=== PATIENT | male | born 1955 | race Caucasian/White ===

== ENCOUNTER 2016-11-10 12:50 | Emergency (ER) | payer BC, SELFPAY ==
[~2016-11-10] VITALS: Ht 175.3 cm; Wt 49.9 kg
[~2016-11-10 12:50] MED LIST: ADV500INH INH; ALBU17IN2 INH; FERR325T PO; FOLI1TAB2 PO; LEVA750T PO; NICO7PA TD; SENN1TAB2 PO; THIA100TA PO; THIA50CA PO; VITMTA PO
[2016-11-10 15:06] LABS: BASO # 0.1 K/mm3 (0.0-0.2); BASO % 0.8 % (0.0-1.0); EOS # 0.1 K/mm3 (0.0-0.50); EOS % 1.4 % (0.0-3.0); LARGE UNSTAINED CELL # 0.1 K/mm3 (0.0-0.4); LARGE UNSTAINED CELL % 1.4 % (0.0-4.0); LYMPH # 1.4 K/mm3 (1.5-4.5); LYMPH % 16.5 % (24.0-44.0); MEAN CORPUSCULAR HEMOGLOBIN 27.1 pg (27.0-33.0); MEAN CORPUSCULAR HGB CONC 32.3 g/dl (32.0-36.5); MEAN CORPUSCULAR VOLUME 83.9 fl (80.0-96.0); MONO # 0.5 K/mm3 (0.0-0.8); MONO % 6.2 % (0.0-5.0); NEUTROPHILS # 5.8 K/mm3 (1.8-7.7); NEUTROPHILS % 73.7 % (36.0-66.0); PLATELET COUNT, AUTOMATED 462 k/mm3 (150-450); RED CELL DISTRIBUTION WIDTH 15.6 % (11.5-14.5); WHITE BLOOD COUNT 7.8 K/mm3 (4.0-10.0)
[2016-11-10 15:07] LABS: ANION GAP 6 MEQ/L (8-16); BLOOD UREA NITROGEN 12 MG/DL (7-18); CALCIUM LEVEL 9.2 MG/DL (8.8-10.2); CARBON DIOXIDE LEVEL 31 MEQ/L (21-32); CHLORIDE LEVEL 96 MEQ/L (98-107); CREATININE FOR GFR 0.69 MG/DL (0.70-1.30); GLOMERULAR FILTRATION RATE > 60.0 (>49); GLUCOSE, FASTING 98 MG/DL (80-110); SODIUM LEVEL 133 MEQ/L (136-145)
[2016-11-10 15:11] LABS: POTASSIUM SERUM 5.3 MEQ/L (3.5-5.1)
[2016-11-10] MEDS ORDERED: ISOVUE-370 76% 100ML VIAL (Q9967) As Ordered ONE (15:30)
[2016-11-10] MEDS ORDERED: SOD POLYSTYRENE SULFONATE SUSP 15 GM/60 ML UD PO ONE (16:45)
--- NOTE | 2016-11-10 16:49 | REP ---
CT NECK WITH CONTRAST: HISTORY: Right neck mass. CONTRAST: Isovue-370 75 mL. A large mass is present arising from the right posterolateral wall of the hypopharynx. There is superior extension into the right valleculae and piriform sinus. There is anterior extension into the preepiglottic space left lateral wall of the hypopharynx. There is extension along the posterior wall of the hypopharynx across the midline. There is inferior extension into the right false and true vocal cord and subglottic trachea. There is inferior extension along the left lateral wall at the hypopharynx into the left false vocal cord , left true vocal cord and subglottic trachea. There is moderate mass effect on the airway. The naso- and oropharynx are normal in appearance. The salivary and thyroid glands are normal. A necrotic lymph node mass 2.6 cm in width is present in the posterior right submandibular space. A necrotic lymph node mass 2 cm in width is present in the right supraclavicular area at the level of the thyroid gland. Atherosclerotic calcification is present at the carotid bifurcations. Degenerative change is present in the cervical spine. [place] are present in the lung apices. Minimal mucosal thickening is present in the left maxillary sinus. IMPRESSION: 1. There is a large transglottic mass extending from the hypopharynx inferior into the subglottic trachea with moderate mass effect on the airway described above. 2. There are two necrotic lymph node masses in the right submandibular space and right supraclavicular area. Signed by Omkar Ryan MD 11/10/2016 04:57 P
[2016-11-10 17:40] VITALS: BP 147/80
--- NOTE | 2016-11-11 10:22 | ECGEPIP ---
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 RBBB SIMILAR TO 07/07/16 Electronically Signed On 11-11-2016 10:22:37 EDT by Dex Roberto
== END 2016-11-10 17:42 | disposition home or self-care (01) ==
LOC: M ED 15:43
DX: R22.1 Localized swelling, mass and lump, neck (principal); E87.5 Hyperkalemia
CPT/HCPCS: 36415; 70491; 80048; 85025; 87880; 93005; 99283; Q9967

== ENCOUNTER 2018-05-17 12:17 | Outpatient (RCR) | payer OTHER | END 2018-06-16 | LOC: M ST 12:17 | DX: C32.9 Malignant neoplasm of larynx, unspecified (principal); R49.0 Dysphonia | CPT/HCPCS: 92610 ==

== ENCOUNTER → 2018-07-07 | Outpatient (CLI) | payer OTHER ==
[~2018-07-07] MED LIST changes: -ADV500INH INH; -ALBU17IN2 INH; -FERR325T PO; -FOLI1TAB2 PO; +GASTROGRAFIN SOLUTION 30ML (Q9963) As Ordered; +ISOVUE-370 76% 100ML VIAL (Q9967) As Ordered; -LEVA750T PO; -NICO7PA TD; -SENN1TAB2 PO; -THIA100TA PO; -THIA50CA PO; -VITMTA PO
== END ==
LOC: M RAD 15:53
DX: J44.9 Chronic obstructive pulmonary disease, unspecified (principal); D49.1 Neoplasm of unspecified behavior of respiratory system; Z93.0 Tracheostomy status; Z98.890 Other specified postprocedural states
CPT/HCPCS: Q9963

== ENCOUNTER 2018-10-22 20:29 | Emergency (ER) | payer OTHER ==
[~2018-10-22] VITALS: Ht 172.7 cm; Wt 42.3 kg
[~2018-10-22 20:29] MED LIST changes: +ADV500INH INH; +ALBU17IN2 INH; +FERR1TAB8 PO; +FOLI1TAB11 PO; -GASTROGRAFIN SOLUTION 30ML (Q9963) As Ordered; -ISOVUE-370 76% 100ML VIAL (Q9967) As Ordered; +LEVA750T7 PO; +NICO7PA TD; +SENN1TAB2 PO; +THIA100TA PO; +THIA50CA PO; +VITMTA PO
[2018-10-22 20:30] VITALS: BP 99/66
== END 2018-10-22 21:37 | disposition home or self-care (01) ==
LOC: M ED 20:29
DX: J95.09 Other tracheostomy complication (principal); C34.90 Malignant neoplasm of unspecified part of unspecified bronchus or lung; J45.909 Unspecified asthma, uncomplicated; Z72.0 Tobacco use

== ENCOUNTER → 2018-12-13 | Outpatient (CLI) | payer OTHER ==
[~2018-12-13] MED LIST changes: -SENN1TAB2 PO; +SENN1TAB40 PO
[2018-12-13 15:50] LABS: BASO % 0.6 % (0.0-1.0); EOS % 0.3 % (0.0-3.0); HEMATOCRIT 25.8 % (42.0-52.0); HEMOGLOBIN 8.3 g/dl (13.5-17.5); LYMPH # 0.5 10^3/uL (1.5-4.5); LYMPH % 13.3 % (24.0-44.0); MEAN CORPUSCULAR HEMOGLOBIN 29.9 pg (27.0-33.0); MEAN CORPUSCULAR HGB CONC 32.2 g/dl (32.0-36.5); MEAN CORPUSCULAR VOLUME 92.8 fl (80.0-96.0); MONO # 0.3 10^3/uL (0.0-0.8); MONO % 8.2 % (0.0-5.0); NEUTROPHILS # 2.7 10^3/uL (1.8-7.7); NEUTROPHILS % 76.5 % (36.0-66.0); PLATELET COUNT, AUTOMATED 327 10^3/uL (150-450); RED BLOOD COUNT 2.78 10^6/uL (4.30-6.10); WHITE BLOOD COUNT 3.5 10^3/uL (4.0-10.0)
== END ==
LOC: M LAB 15:17
PROVIDERS: ATTEND Internal Medicine Hematology & Oncology
DX: D64.9 Anemia, unspecified (principal)

== ENCOUNTER 2019-01-03 11:58 | Inpatient (IN) | payer OTHER ==
[~2019-01-03 11:58] MED LIST changes: +POTA1TAB23 PO
[2019-01-03] MEDS ORDERED: NS 1,000 ML IV ONE (13:00)
--- NOTE | 2019-01-03 14:38 | REP ---
REASON: Fatigue. COMPARISON: 07/07/2016, the only prior. Since the last examination a tracheostomy tube has been placed. Since the last examination a single chamber right sided subclavian multi-port catheter has been placed, the tip is in the superior vena cava. The patchy opacities seen previously in the left upper lobe have cleared and there is residual apical capping and scarring. There is a new right upper lobe patchy opacity which has the appearance of some scarring and apical capping. The lung morales are hyperexpanded. The pleural angles are sharp. The technique utilized in obtaining the radiograph has magnified the cardiac silhouette and accentuated the interstitial markings. The osseous structures are stable and intact. IMPRESSION: Abnormal right upper lung field as described above, chronic change with possible acute disease superimposed upon chronic change. Correlate clinically. Tracheostomy tube and central venous catheter as described above. Consider chest CT. Electronically Signed by Andrez Ramesh DO 01/03/2019 03:40 P
[2019-01-03 15:20] LABS: BASO % 0.3 % (0.0-1.0); EOS % 0.3 % (0.0-3.0); HEMATOCRIT 24.8 % (42.0-52.0); HEMOGLOBIN 7.8 g/dl (13.5-17.5); LYMPH # 0.3 10^3/uL (1.5-4.5); LYMPH % 9.8 % (24.0-44.0); MEAN CORPUSCULAR HEMOGLOBIN 29.5 pg (27.0-33.0); MEAN CORPUSCULAR HGB CONC 31.5 g/dl (32.0-36.5); MEAN CORPUSCULAR VOLUME 93.9 fl (80.0-96.0); MONO # 0.3 10^3/uL (0.0-0.8); MONO % 10.7 % (0.0-5.0); NEUTROPHILS # 2.5 10^3/uL (1.8-7.7); NEUTROPHILS % 78.6 % (36.0-66.0); PLATELET COUNT, AUTOMATED 196 10^3/uL (150-450); RED BLOOD COUNT 2.64 10^6/uL (4.30-6.10); WHITE BLOOD COUNT 3.2 10^3/uL (4.0-10.0)
[2019-01-03 15:48] LABS: ALBUMIN 1.4 GM/DL (3.2-5.2); ALT/SGPT 13 U/L (12-78); BILIRUBIN,TOTAL 0.2 MG/DL (0.2-1.0); BLOOD UREA NITROGEN 11 MG/DL (7-18); CARBON DIOXIDE LEVEL 27 MEQ/L (21-32); CHLORIDE LEVEL 110 MEQ/L (98-107); CREATININE FOR GFR 0.72 MG/DL (0.70-1.30); FERRITIN 285 NG/ML (26-388); GLOMERULAR FILTRATION RATE > 60.0 (>49); GLUCOSE, FASTING 86 MG/DL (70-100); IRON (FE) 33 UG/DL (65-175); MAGNESIUM LEVEL 1.4 MG/DL (1.8-2.4); PERCENT SATURATION 36.7 % (19.7-50.0); POTASSIUM SERUM 3.9 MEQ/L (3.5-5.1); SODIUM LEVEL 143 MEQ/L (136-145); TOTAL IRON BINDING CAPACITY 90 UG/DL (250-450); TOTAL PROTEIN 4.1 GM/DL (6.4-8.2)
[2019-01-03 15:59] LABS: FOLATE 6.5 NG/ML (>5.4); VITAMIN B12 LEVEL 907 PG/ML (247-911)
[2019-01-03] MEDS ORDERED: MAG SULF 1GM/100ML (MAG RUN) 1 GM in APPROPRIATE DILUENT 1 EA IV ONE (16:15)
[2019-01-03] MEDS ORDERED: ACET-683 PO (16:35)
--- NOTE | 2019-01-03 17:32 | HPEPDOC ---
[facility] Medical History & Physical Date of Admission January 03, 2019 Date of Service: January 03, 2019 Attending Physician: ISABEL MEEKS MD History and Physical CHIEF COMPLAINT: Severe weakness HISTORY OF PRESENT ILLNESS: Patient is 63-year-old male with past medical history of laryngeal cancer status post tracheostomy and ?COPD presented sent in to the ER from Oncology clinic for hypotension and severe malnutrition. Patient has had chemo/RT and normally follows at [place] but recently decided to go to [place] and start following Oncology here. He went in for his first appointment today noted to be severely cachectic with hypotension and was sent to the ER. Patient reports generalized weakness and lack of appetite but otherwise no significant complaints. He was found to be covered in bed bugs and disheveled. PAST MEDICAL HISTORY: 1. Laryngeal ca s/p Trach FAST FOOD SHIFT LEAD 2. ?COPD documented but not on any treatments PAST SURGICAL HISTORY: L. wrist surgery Trach s/p PEG but had fallen out. SOCIAL HISTORY: Current smoker <1ppd but recent history of 1ppd since age 21. Denies alcohol or drug use. FAMILY HISTORY: Mother DM HTN Father- Emphysema/COPD, CHF, HTN, HLD, Cancer ALLERGIES: Please see below. REVIEW OF SYSTEMS: 10 point review of system negative except as stated in HPI HOME MEDICATIONS: Please see below. PHYSICAL EXAMINATION: General: No acute distress, Alert. Disheveled, severely cachectic with significant hair loss. Eyes: Normal sclera, EOMI, JAMI HENT: Atraumatic, neck supple, moist mucous membranes Cardiovascular: Normal rate, normal rhythm. No murmurs appreciated. Pulmonary: Clear to auscultation b/l, no wheezing GI: Soft, nontender, nondistended Skin: Warm and dry Neuro: CN grossly intact. No focal deficits. Strengths equal b/l. Psych: oriented x 3 LABORATORY DATA: See below. IMAGING: CXR- IMPRESSION: Abnormal right upper lung field as described above, chronic change with possible acute disease superimposed upon chronic change. Correlate clinically. Tracheostomy tube and central venous catheter as described above. Consider chest CT. MICROBIOLOGY: Please see below. ASSESSMENT AND PLAN: 1. Severe malnutrition/cachectic - 2/2 malignancy and low appetite. - Full nutrition assessment and management. - Cautious to avoid refeeding syndrome, although patient does eat at home, just not as much. - Monitor and replace electrolytes. 2. Laryngeal cancer - s/p FAST FOOD SHIFT LEAD. To follow up with Oncology post discharge. - Patient is DNR, want assistance with nutrition optimization but does not want any aggressive intervention in the hospital at this time. - No central line placement for hypotension. 3. ? COPD - Nebs PRN for SOB. 4. Anemia - likely 2/2 severe malnutrition and malignancy. - blood started in ER, to get 2 units pRBC. DVT ppx: HSQ and SCD Code status: DNR Dispo: CM/PT for home safety eval. Possible placement needed or at least home care. Vital Signs Vital Signs Date Time Temp Pulse Resp B/P (MAP) Pulse Ox O2 Delivery O2 Flow Rate FiO2 01/03/19 16:59 97.3 77 18 109/62 (78) 100 Room Air Laboratory Data Labs 24H Laboratory Tests 2 01/03/19 14:01: Immature Granulocyte % (Auto) 0.3, White Blood Count 3.2L, Red Blood Count 2.64L, Hemoglobin 7.8L, Hematocrit 24.8L, Mean Corpuscular Volume 93.9, Mean Corpuscular Hemoglobin 29.5, Mean Corpuscular Hemoglobin Concent 31.5L, Red Cell Distribution Width 24.7H, Platelet Count 196, Neutrophils (%) (Auto) 78.6H, Lymphocytes (%) (Auto) 9.8L, Monocytes (%) (Auto) 10.7H, Eosinophils (%) (Auto) 0.3, Basophils (%) (Auto) 0.3, Neutrophils # (Auto) 2.5, Lymphocytes # (Auto) 0.3L, Monocytes # (Auto) 0.3, Eosinophils # (Auto) 0.0, Basophils # (Auto) 0.0, Nucleated Red Blood Cells % (auto) 0.0, Anion Gap 6L, Glomerular Filtration Rate > 60.0, Blood Urea Nitrogen 11, Creatinine 0.72, Sodium Level 143, Potassium Level 3.9, Chloride Level 110H, Carbon Dioxide Level 27, Calcium Level 7.0L, Aspartate Amino Transf (AST/SGOT) 9, Alanine Aminotransferase (ALT/SGPT) 13, Alkaline Phosphatase 134H, Total Bilirubin 0.2, Total Protein 4.1L, Albumin 1.4L, Magnesium Level 1.4L, Iron Level 33L, Total Iron Binding Capacity 90L, Transferrin % Saturation 36.7, Ferritin 285, Albumin/Globulin Ratio 0.52L, Vitamin B12 Level 907, Folate 6.5 CBC/BMP Laboratory Tests 01/03/19 14:01 Red Blood Count 2.64 L, Mean Corpuscular Volume 93.9, Mean Corpuscular Hemoglobin 29.5, Mean Corpuscular Hemoglobin Concent 31.5 L, Red Cell D istribution Width 24.7 H, Neutrophils (%) (Auto) 78.6 H, Lymphocytes (%) (Auto) 9.8 L, Monocytes (%) (Auto) 10.7 H, Eosinophils (%) (Auto) 0.3, Basophils (%) (Auto) 0.3, Neutrophils # (Auto) 2.5, Lymphocytes # (Auto) 0.3 L, Monocytes # (Auto) 0.3, Eosinophils # (Auto) 0.0, Basophils # (Auto) 0.0, Calcium Level 7.0 L, Aspartate Amino Transf (AST/SGOT) 9, Alanine Aminotransferase (ALT/SGPT) 13, Alkaline Phosphatase 134 H, Total Bilirubin 0.2, Total Protein 4.1 L, Albumin 1.4 L Home Medications Scheduled Potassium Chloride (Potassium Chloride) 10 Meq Tablet.er, 10 MEQ PO BID Scheduled PRN Acetaminophen (Acetaminophen) 500 Mg Tablet, 1,000 MG PO Q6H PRN for PAIN Allergies Coded Allergies: No Known Allergies (Verified Allergy, Unknown, 01/03/19) A-FIB/CHADSVASC A-FIB History Current/History of A-Fib/PAF?: No ISABEL MEEKS MD January 03, 2019 17:32
[2019-01-03 18:54] VITALS: BP 95/59
[2019-01-03 19:25] VITALS: BP 104/67
[2019-01-03] MEDS: NS 1,000 ML IV SCH (23:20)
[2019-01-04] MEDS: HEPARIN SOD (PORCINE) 5000 UNITS/ML VIAL SC SCH ×3 (02:12→20:06)
[2019-01-04] MEDS: SODIUM CHLORIDE 0.9% INJ 10 ML SYR IV PRN (02:13)
[2019-01-04 06:00] VITALS: BP 101/58
[2019-01-04] MEDS: NS 1,000 ML IV SCH ×2 (06:03→20:06)
[2019-01-04 06:19] LABS: HEMATOCRIT 32.7 % (42.0-52.0); MEAN CORPUSCULAR HEMOGLOBIN 29.7 pg (27.0-33.0); MEAN CORPUSCULAR HGB CONC 32.7 g/dl (32.0-36.5); MEAN CORPUSCULAR VOLUME 90.8 fl (80.0-96.0); PLATELET COUNT, AUTOMATED 211 10^3/uL (150-450); WHITE BLOOD COUNT 3.1 10^3/uL (4.0-10.0)
[2019-01-04 06:26] LABS: HEMOGLOBIN 10.7 g/dl (13.5-17.5)
[2019-01-04 06:45] LABS: BLOOD UREA NITROGEN 9 MG/DL (7-18); CALCIUM LEVEL 7.1 MG/DL (8.8-10.2); CARBON DIOXIDE LEVEL 24 MEQ/L (21-32); CHLORIDE LEVEL 110 MEQ/L (98-107); CREATININE FOR GFR 0.48 MG/DL (0.70-1.30); GLOMERULAR FILTRATION RATE > 60.0 (>49); GLUCOSE, FASTING 83 MG/DL (70-100); MAGNESIUM LEVEL 1.6 MG/DL (1.8-2.4); POTASSIUM SERUM 3.5 MEQ/L (3.5-5.1); SODIUM LEVEL 142 MEQ/L (136-145)
[2019-01-04 10:00] VITALS: BP 80/60
--- NOTE | 2019-01-04 13:25 | IPNPDOC ---
Date Seen The patient was seen on 01/04/19. Progress Note SUBJECTIVE: Patient reported feeling slightly better today. s/p 2 units pRBC yesterday, weakness appeared slightly improved. Has been eating acceptable amount. 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 OBJECTIVE PHYSICAL EXAMINATION: VITAL SIGNS: Please see below. General: No acute distress, Alert. severely cachectic with significant hair loss. Eyes: Normal sclera, EOMI, JAMI HENT: Atraumatic, neck supple, moist mucous membranes Cardiovascular: Normal rate, normal rhythm. No murmurs appreciated. Pulmonary: Clear to auscultation b/l, no wheezing GI: Soft, nontender, nondistended Skin: Warm and dry Neuro: CN grossly intact. No focal deficits. Strengths equal b/l. Psych: oriented x 3 LABORATORY DATA, IMAGING STUDIES, MICROBIOLOGY: Please see below. ASSESSMENT AND PLAN: 1. Severe malnutrition/cachectic - 2/2 malignancy and low appetite. - Full nutrition assessment and management. - Cautious to avoid refeeding syndrome, although patient does eat at home, just not as much. - Monitor and replace electrolytes. 2. 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 To follow up with Oncology post discharge. - Patient is DNR, want assistance with nutrition optimization but does not want any aggressive intervention in the hospital at this time. - No central line placement for hypotension. 3. ? COPD - Nebs PRN for SOB. 4. Anemia - likely 2/2 severe malnutrition and malignancy. - s/p 2 pRBC. Strength slightly improved. DVT ppx: HSQ and SCD Code status: DNR Dispo: CM/PT for home safety eval. Possible placement needed or at least home care. A-FIB/CHADSVASC A-FIB History Current/History of A-Fib/PAF?: No VS, I&O, 24H, Fishbone Vital Signs/I&O Vital Signs Date Time Temp Pulse Resp B/P (MAP) Pulse Ox O2 Delivery O2 Flow Rate FiO2 01/04/19 10:00 65 22 80/60 (67) 98 01/04/19 06:00 97.6 01/03/19 17:44 Room Air I&O- Last 24 Hours up to 6 AM 01/04/19 06:00 Intake Total 525 ml Output Total 200 ml Balance 325 ml Laboratory Data 24H LABS Laboratory Tests 2 01/03/19 14:01: Immature Granulocyte % (Auto) 0.3, White Blood Count 3.2L, Red Blood Count 2.64L, Hemoglobin 7.8L, Hematocrit 24.8L, Mean Corpuscular Volume 93.9, Mean Corpuscular Hemoglobin 29.5, Mean Corpuscular Hemoglobin Concent 31.5L, Red Cell Distribution Width 24.7H, Platelet Count 196, Neutrophils (%) (Auto) 78.6H, Lymphocytes (%) (Auto) 9.8L, Monocytes (%) (Auto) 10.7H, Eosinophils (%) (Auto) 0.3, Basophils (%) (Auto) 0.3, Neutrophils # (Auto) 2.5, Lymphocytes # (Auto) 0.3L, Monocytes # (Auto) 0.3, Eosinophils # (Auto) 0.0, Basophils # (Auto) 0.0, Nucleated Red Blood Cells % (auto) 0.0, Anion Gap 6L, Glomerular Filtration Rate > 60.0, Blood Urea Nitrogen 11, Creatinine 0.72, Sodium Level 143, Potassium Level 3.9, Chloride Level 110H, Carbon Dioxide Level 27, Calcium Level 7.0L, Aspartate Amino Transf (AST/SGOT) 9, Alanine Aminotransferase (ALT/SGPT) 13, Alkaline Phosphatase 134H, Total Bilirubin 0.2, Total Protein 4.1L, Albumin 1.4L, Magnesium Level 1.4L, Iron Level 33L, Total Iron Binding Capacity 90L, Transferrin % Saturation 36.7, Ferritin 285, Albumin/Globulin Ratio 0.52L, C arcinoembryonic Antigen 2.2, Vitamin B12 Level 907, Folate 6.5 01/04/19 06:01: Nucleated Red Blood Cells % (auto) 0.0, Anion Gap 8, Glomerular Filtration Rate > 60.0, Blood Urea Nitrogen 9, Creatinine 0.48L, Sodium Level 142, Potassium Level 3.5, Chloride Level 110H, Carbon Dioxide Level 24, Calcium Level 7.1L, Magnesium Level 1.6L CBC/BMP Laboratory Tests 01/03/19 14:01 Red Blood Count 2.64 L, Mean Corpuscular Volume 93.9, Mean Corpuscular Hemoglobin 29.5, Mean Corpuscular Hemoglobin Concent 31.5 L, Red Cell Distribution Width 24.7 H, Neutrophils (%) (Auto) 78.6 H, Lymphocytes (%) (Auto) 9.8 L, Monocytes (%) (Auto) 10.7 H, Eosinophils (%) (Auto) 0.3, Basophils (%) (Auto) 0.3, Neutrophils # (Auto) 2.5, Lymphocytes # (Auto) 0.3 L, Monocytes # (Auto) 0.3, Eosinophils # (Auto) 0.0, Basophils # (Auto) 0.0, Calcium Level 7.0 L, Aspartate Amino Transf (AST/SGOT) 9, Alanine Aminotransferase (ALT/SGPT) 13, Alkaline Phosphatase 134 H, Total Bilirubin 0.2, Total Protein 4.1 L, Albumin 1.4 L 01/04/19 06:01 Red Blood Count 3.60 L, Mean Corpuscular Volume 90.8, Mean Corpuscular Hemoglobin 29.7, Mean Corpuscular Hemoglobin Concent 32.7, Red Cell Distribution Width 20.6 H, Calcium Level 7.1 L ISABEL MEEKS MD January 04, 2019 13:25
[2019-01-04 14:00] VITALS: BP 103/59
[2019-01-04] MEDS: MAG SULF 1GM/100ML (MAG RUN) 1 GM in APPROPRIATE DILUENT 1 EA IV SCH ×2 (14:14→15:18)
[2019-01-04 18:00] VITALS: BP_SYST 105; BP_SYST 115; BP_DIAS 62; BP_DIAS 71
[2019-01-04 22:00] VITALS: BP 108/63
[2019-01-05 02:00] VITALS: BP 102/60
[2019-01-05 06:00] VITALS: BP 105/62
[2019-01-05 06:09] LABS: HEMATOCRIT 34.5 % (42.0-52.0); HEMOGLOBIN 11.4 g/dl (13.5-17.5); MEAN CORPUSCULAR HEMOGLOBIN 30.7 pg (27.0-33.0); PLATELET COUNT, AUTOMATED 276 10^3/uL (150-450); RED BLOOD COUNT 3.71 10^6/uL (4.30-6.10); WHITE BLOOD COUNT 4.2 10^3/uL (4.0-10.0)
[2019-01-05 06:28] LABS: BLOOD UREA NITROGEN 6 MG/DL (7-18); CALCIUM LEVEL 6.8 MG/DL (8.8-10.2); CARBON DIOXIDE LEVEL 24 MEQ/L (21-32); CHLORIDE LEVEL 110 MEQ/L (98-107); CREATININE FOR GFR 0.45 MG/DL (0.70-1.30); GLOMERULAR FILTRATION RATE > 60.0 (>49); GLUCOSE, FASTING 90 MG/DL (70-100); MAGNESIUM LEVEL 1.3 MG/DL (1.8-2.4); POTASSIUM SERUM 2.9 MEQ/L (3.5-5.1); SODIUM LEVEL 142 MEQ/L (136-145)
[2019-01-05] MEDS: KCL 10MEQ/100ML SWI (KRUN) 10 MEQ in APPROPRIATE DILUENT 1 EA IV SCH ×2 (06:59→08:40)
[2019-01-05] MEDS ORDERED: POTASSIUM CHLORIDE 10 MEQ SR TABLET PO ONE (08:30)
[2019-01-05] MEDS: HEPARIN SOD (PORCINE) 5000 UNITS/ML VIAL SC SCH ×2 (08:41→22:28)
[2019-01-05] MEDS: NS 1,000 ML IV SCH ×2 (09:30→12:58)
[2019-01-05] MEDS: MAG SULF 1GM/100ML (MAG RUN) 1 GM in APPROPRIATE DILUENT 1 EA IV SCH ×3 (09:48→12:57)
--- NOTE | 2019-01-05 13:51 | IPNPDOC ---
Date Seen The patient was seen on 01/05/19. Progress Note SUBJECTIVE: Patient reported feeling slightly better today, but no significant difference. Complains that the food is not good and cold. New tray sent up, advised to eat as much as he can. OBJECTIVE PHYSICAL EXAMINATION: VITAL SIGNS: Please see below. General: No acute distress, Alert. severely cachectic with significant hair loss. Eyes: Normal sclera, EOMI, JAMI HENT: Atraumatic, neck supple, moist mucous membranes Cardiovascular: Normal rate, normal rhythm. No murmurs appreciated. Pulmonary: Clear to auscultation b/l, no wheezing GI: Soft, nontender, nondistended Skin: Warm and dry Neuro: CN grossly intact. No focal deficits. Strengths equal b/l. Psych: oriented x 3 LABORATORY DATA, IMAGING STUDIES, MICROBIOLOGY: Please see below. ASSESSMENT AND PLAN: 1. Severe malnutrition/cachectic - 2/2 malignancy and low appetite. - Full nutrition assessment and management. - Monitor and replace electrolytes. Seem to require replacement daily. 2. 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 To follow up with Oncology post discharge. - Patient is DNR, want assistance with nutrition optimization but does not want any aggressive intervention in the hospital at this time for BP support. - No central line placement for hypotension. 3. ? COPD - Nebs PRN for SOB. 4. Anemia - likely 2/2 severe malnutrition and malignancy. - s/p 2 pRBC. Strength slightly improved. DVT ppx: HSQ and SCD Code status: DNR Dispo: CM/PT for home safety eval. Possible placement needed or at least home ca re. A-FIB/CHADSVASC A-FIB History Current/History of A-Fib/PAF?: No VS, I&O, 24H, Fishbone Vital Signs/I&O Vital Signs Date Time Temp Pulse Resp B/P (MAP) Pulse Ox O2 Delivery O2 Flow Rate FiO2 01/05/19 06:00 97.8 65 18 105/62 (76) 96 01/03/19 17:44 Room Air I&O- Last 24 Hours up to 6 AM 01/05/19 06:00 Intake Total 1640 ml Output Total 940 ml Balance 700 ml Laboratory Data 24H LABS Laboratory Tests 2 01/05/19 05:47: Nucleated Red Blood Cells % (auto) 0.0, Anion Gap 8, Glomerular Filtration Rate > 60.0, Blood Urea Nitrogen 6L, Creatinine 0.45L, Sodium Level 142, Potassium Level 2.9*L, Chloride Level 110H, Carbon Dioxide Level 24, Calcium Level 6.8L, Magnesium Level 1.3L CBC/BMP Laboratory Tests 01/05/19 05:47 Red Blood Count 3.71 L, Mean Corpuscular Volume 93.0, Mean Corpuscular Hemoglobin 30.7, Mean Corpuscular Hemoglobin Concent 33.0, Red Cell Distribution Width 21.4 H, Calcium Level 6.8 L ISABEL MEEKS MD January 05, 2019 13:51
[2019-01-05 14:00] VITALS: BP 131/62
[2019-01-05] MEDS ORDERED: IPRATROPIUM 0.5MG/ALBUTEROL 2.5MG INH SOL UD 3ML (DUONEB)(J7620) NEB PRN (14:00)
[2019-01-05] MEDS: SODIUM CHLORIDE 0.9% INJ 10 ML SYR IV PRN (16:06)
[2019-01-05 16:56] LABS: BLOOD UREA NITROGEN 6 MG/DL (7-18); CALCIUM LEVEL 6.9 MG/DL (8.8-10.2); CARBON DIOXIDE LEVEL 25 MEQ/L (21-32); CHLORIDE LEVEL 109 MEQ/L (98-107); CREATININE FOR GFR 0.49 MG/DL (0.70-1.30); GLOMERULAR FILTRATION RATE > 60.0 (>49); GLUCOSE, FASTING 118 MG/DL (70-100); MAGNESIUM LEVEL 2.2 MG/DL (1.8-2.4); POTASSIUM SERUM 3.5 MEQ/L (3.5-5.1); SODIUM LEVEL 141 MEQ/L (136-145)
[2019-01-05 18:00] VITALS: BP 128/65
[2019-01-05 22:00] VITALS: BP 100/50
[2019-01-06] MEDS: NS 1,000 ML IV SCH (01:38)
[2019-01-06 02:00] VITALS: BP 102/58
[2019-01-06] MEDS: SODIUM CHLORIDE 0.9% INJ 10 ML SYR IV PRN (05:39)
[2019-01-06 05:53] LABS: HEMATOCRIT 33.9 % (42.0-52.0); MEAN CORPUSCULAR HEMOGLOBIN 29.6 pg (27.0-33.0); MEAN CORPUSCULAR HGB CONC 32.4 g/dl (32.0-36.5); MEAN CORPUSCULAR VOLUME 91.1 fl (80.0-96.0); PLATELET COUNT, AUTOMATED 331 10^3/uL (150-450); RED BLOOD COUNT 3.72 10^6/uL (4.30-6.10); WHITE BLOOD COUNT 4.2 10^3/uL (4.0-10.0)
[2019-01-06 06:00] VITALS: BP 110/60
[2019-01-06 06:15] LABS: BLOOD UREA NITROGEN 5 MG/DL (7-18); CALCIUM LEVEL 6.5 MG/DL (8.8-10.2); CARBON DIOXIDE LEVEL 26 MEQ/L (21-32); CHLORIDE LEVEL 110 MEQ/L (98-107); CREATININE FOR GFR 0.38 MG/DL (0.70-1.30); GLOMERULAR FILTRATION RATE > 60.0 (>49); GLUCOSE, FASTING 85 MG/DL (70-100); MAGNESIUM LEVEL 1.7 MG/DL (1.8-2.4); POTASSIUM SERUM 3.2 MEQ/L (3.5-5.1); SODIUM LEVEL 143 MEQ/L (136-145)
[2019-01-06] MEDS ORDERED: POTASSIUM CHLORIDE 10 MEQ SR TABLET PO ONE (08:30)
[2019-01-06] MEDS: MAG SULF 1GM/100ML (MAG RUN) 1 GM in APPROPRIATE DILUENT 1 EA IV SCH ×2 (08:42→09:47)
[2019-01-06] MEDS: HEPARIN SOD (PORCINE) 5000 UNITS/ML VIAL SC SCH ×2 (08:42→21:33)
[2019-01-06 10:00] VITALS: BP 128/72
[2019-01-06 14:00] VITALS: BP 112/61
[2019-01-06 18:00] VITALS: BP 117/69
--- NOTE | 2019-01-06 20:31 | IPNPDOC ---
Date Seen The patient was seen on 01/06/19. Progress Note SUBJECTIVE: Patient reported feeling slightly better today. Still complains about the food at the hospital. Ongoing need for electrolyte repletion. Discussed with possible need for Rehab placement and patient is thinking about it but seems agreeable. OBJECTIVE PHYSICAL EXAMINATION: VITAL SIGNS: Please see below. General: No acute distress, Alert. severely cachectic with significant hair loss. Eyes: Normal sclera, EOMI, JAMI HENT: Atraumatic, neck supple, moist mucous membranes Cardiovascular: Normal rate, normal rhythm. No murmurs appreciated. Pulmonary: Clear to auscultation b/l, no wheezing GI: Soft, nontender, nondistended Skin: Warm and dry Neuro: CN grossly intact. No focal deficits. Strengths equal b/l. Psych: oriented x 3 LABORATORY DATA, IMAGING STUDIES, MICROBIOLOGY: Please see below. ASSESSMENT AND PLAN: 1. Severe malnutrition/cachectic - 2/2 malignancy and low appetite. - Full nutrition assessment and management. - Monitor and replace electrolytes. Seem to require replacement daily. 2. Laryngeal cancer - s/p INHALATION THERAPY AIDE. To follow up with Oncology post discharge. - Patient is DNR, want assistance with nutrition optimization but does not want any aggressive intervention in the hospital at this time for BP support. - No central line placement for hypotension. 3. ? COPD - Nebs PRN for SOB. 4. Anemia - likely 2/2 severe malnutrition and malignancy. - s/p 2 pRBC. Strength slightly improved. DVT ppx: HSQ and SCD Code status: DNR Dispo: CM/PT for home safety eval. Possible placement needed or at least home care. A-FIB/CHADSVASC A-FIB History Current/History of A-Fib/PAF?: No VS, I&O, 24H, Fishbone Vital Signs/I&O Vital Signs Date Time Temp Pulse Resp B/P (MAP) Pulse Ox O2 Delivery O2 Flow Rate FiO2 01/06/19 18:00 98.3 94 16 117/69 (85) 97 01/03/19 17:44 Room Air I&O- Last 24 Hours up to 6 AM 01/06/19 06:00 Intake Total 2580 ml Output Total 2850 ml Balance -270 ml Laboratory Data 24H LABS Laboratory Tests 2 01/06/19 05:37: Nucleated Red Blood Cells % (auto) 0.0, Anion Gap 7L, Glomerular Filtration Rate > 60.0, Blood Urea Nitrogen 5L, Creatinine 0.38L, Sodium Level 143, Potassium Level 3.2L, Chloride Level 110H, Carbon Dioxide Level 26, Calcium Level 6.5L, Magnesium Level 1.7L CBC/BMP Laboratory Tests 01/06/19 05:37 Red Blood Count 3.72 L, Mean Corpuscular Volume 91.1, Mean Corpuscular Hemoglobi n 29.6, Mean Corpuscular Hemoglobin Concent 32.4, Red Cell Distribution Width 21.9 H, Calcium Level 6.5 L ISABEL MEEKS MD January 06, 2019 20:30
[2019-01-06 22:00] VITALS: BP 120/77
[2019-01-07 02:00] VITALS: BP 119/68
[2019-01-07 06:00] VITALS: BP 119/71
[2019-01-07 06:55] LABS: HEMATOCRIT 33.3 % (42.0-52.0); HEMOGLOBIN 10.8 g/dl (13.5-17.5); MEAN CORPUSCULAR HEMOGLOBIN 29.8 pg (27.0-33.0); MEAN CORPUSCULAR HGB CONC 32.4 g/dl (32.0-36.5); PLATELET COUNT, AUTOMATED 339 10^3/uL (150-450); RED BLOOD COUNT 3.62 10^6/uL (4.30-6.10); WHITE BLOOD COUNT 3.9 10^3/uL (4.0-10.0)
[2019-01-07 07:19] LABS: BLOOD UREA NITROGEN 4 MG/DL (7-18); CARBON DIOXIDE LEVEL 28 MEQ/L (21-32); CHLORIDE LEVEL 108 MEQ/L (98-107); CREATININE FOR GFR 0.31 MG/DL (0.70-1.30); GLOMERULAR FILTRATION RATE > 60.0 (>49); GLUCOSE, FASTING 73 MG/DL (70-100); POTASSIUM SERUM 3.1 MEQ/L (3.5-5.1); SODIUM LEVEL 142 MEQ/L (136-145)
[2019-01-07] MEDS ORDERED: POTASSIUM CHLORIDE 10 MEQ SR TABLET PO ONE (08:00)
[2019-01-07] MEDS: NS 1,000 ML IV SCH ×2 (08:25→14:50)
[2019-01-07] MEDS: HEPARIN SOD (PORCINE) 5000 UNITS/ML VIAL SC SCH ×2 (08:26→21:34)
[2019-01-07 08:44] LABS: MAGNESIUM LEVEL 1.4 MG/DL (1.8-2.4)
[2019-01-07 10:00] VITALS: BP 102/62
[2019-01-07] MEDS: MAG SULF 1GM/100ML (MAG RUN) 1 GM in APPROPRIATE DILUENT 1 EA IV SCH ×3 (10:15→12:52)
[2019-01-07 14:00] VITALS: BP 122/83
--- NOTE | 2019-01-07 17:43 | IPNPDOC ---
Date Seen The patient was seen on 01/07/19. Progress Note SUBJECTIVE: Patient reported feels unchanged. No particular complaints besides cold food again. Ongoing need for electrolyte repletion. OBJECTIVE PHYSICAL EXAMINATION: VITAL SIGNS: Please see below. General: No acute distress, Alert. severely cachectic with significant hair loss. Eyes: Normal sclera, EOMI, JAMI HENT: Atraumatic, neck supple, moist mucous membranes Cardiovascular: Normal rate, normal rhythm. No murmurs appreciated. Pulmonary: Clear to auscultation b/l, no wheezing GI: Soft, nontender, nondistended Skin: Warm and dry Neuro: CN grossly intact. No focal deficits. Strengths equal b/l. Psych: oriented x 3 LABORATORY DATA, IMAGING STUDIES, MICROBIOLOGY: Please see below. ASSESSMENT AND PLAN: 1. Severe malnutrition/cachectic - 2/2 malignancy and low appetite. - Full nutrition assessment and management. - Monitor and replace electrolytes. Seem to require replacement daily. 2. 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 To follow up with Oncology post discharge. - Patient is DNR, want assistance with nutrition optimization but does not want any aggressive intervention in the hospital at this time for BP support. - No central line placement for hypotension. 3. ? COPD - Nebs PRN for SOB. 4. Anemia - likely 2/2 severe malnutrition and malignancy. - s/p 2 pRBC. Strength slightly improved. DVT ppx: HSQ and SCD Code status: DNR Dispo: CM/PT for home safety eval. Possible placement needed or at least home care. VS, I&O, 24H, Fishbone Vital Signs/I&O Vital Signs Date Time Temp Pulse Resp B/P (MAP) Pulse Ox O2 Delivery O2 Flow Rate FiO2 01/07/19 14:00 96.8 74 20 122/83 (96) 98 01/03/19 17:44 Room Air I&O- Last 24 Hours up to 6 AM 01/07/19 06:00 Intake Total 1550 ml Output Total 1700 ml Balance -150 ml Laboratory Data 24H LABS Laboratory Tests 2 01/07/19 06:20: Nucleated Red Blood Cells % (auto) 0.0, Anion Gap 6L, Glomerular Filtration Rate > 60.0, Blood Urea Nitrogen 4L, Creatinine 0.31L, Sodium Level 142, Potassium Level 3.1L, Chloride Level 108H, Carbon Dioxide Level 28, Calcium Level 7.0L, Magnesium Level 1.4L CBC/BMP Laboratory Tests 01/07/19 06:20 Red Blood Count 3.62 L, Mean Corpuscular Volume 92.0, Mean Corpuscular Hemoglobin 29.8, Mean Corpuscular Hemoglobin Concent 32.4, Red Cell Distribution Width 22.1 H, Calcium Level 7.0 L ISABEL MEEKS MD January 07, 2019 17:43
[2019-01-07 18:00] VITALS: BP 119/67
[2019-01-07 22:00] VITALS: BP 117/64
[2019-01-08 02:00] VITALS: BP 107/56
[2019-01-08] MEDS: NS 1,000 ML IV SCH ×2 (03:50→16:47)
[2019-01-08] MEDS: SODIUM CHLORIDE 0.9% INJ 10 ML SYR IV PRN (05:21)
[2019-01-08 05:39] LABS: HEMATOCRIT 32.3 % (42.0-52.0); HEMOGLOBIN 10.5 g/dl (13.5-17.5); MEAN CORPUSCULAR HEMOGLOBIN 30.7 pg (27.0-33.0); MEAN CORPUSCULAR HGB CONC 32.5 g/dl (32.0-36.5); MEAN CORPUSCULAR VOLUME 94.4 fl (80.0-96.0); PLATELET COUNT, AUTOMATED 320 10^3/uL (150-450); RED BLOOD COUNT 3.42 10^6/uL (4.30-6.10); WHITE BLOOD COUNT 3.4 10^3/uL (4.0-10.0)
[2019-01-08 06:00] VITALS: BP 113/62
[2019-01-08 06:10] LABS: BLOOD UREA NITROGEN 4 MG/DL (7-18); CALCIUM LEVEL 6.4 MG/DL (8.8-10.2); CARBON DIOXIDE LEVEL 28 MEQ/L (21-32); CHLORIDE LEVEL 108 MEQ/L (98-107); CREATININE FOR GFR 0.34 MG/DL (0.70-1.30); GLOMERULAR FILTRATION RATE > 60.0 (>49); GLUCOSE, FASTING 76 MG/DL (70-100); MAGNESIUM LEVEL 1.7 MG/DL (1.8-2.4); POTASSIUM SERUM 3.1 MEQ/L (3.5-5.1); SODIUM LEVEL 142 MEQ/L (136-145)
[2019-01-08] MEDS ORDERED: POTASSIUM CHLORIDE 10 MEQ SR TABLET PO ONE (09:00)
[2019-01-08] MEDS: MAG SULF 1GM/100ML (MAG RUN) 1 GM in APPROPRIATE DILUENT 1 EA IV SCH ×2 (09:04→10:10)
[2019-01-08] MEDS: HEPARIN SOD (PORCINE) 5000 UNITS/ML VIAL SC SCH ×2 (09:04→20:57)
[2019-01-08 10:00] VITALS: BP 105/60
[2019-01-08 14:00] VITALS: BP 110/69
[2019-01-08 18:00] VITALS: BP 108/69
--- NOTE | 2019-01-08 18:35 | IPNPDOC ---
Date Seen The patient was seen on 01/08/19. Progress Note SUBJECTIVE: Patient reported feels unchanged. Still complains about food. Electrolyte repletion ongoing. OBJECTIVE PHYSICAL EXAMINATION: VITAL SIGNS: Please see below. General: No acute distress, Alert. severely cachectic with significant hair loss. Eyes: Normal sclera, EOMI, JAMI HENT: Atraumatic, neck supple, moist mucous membranes Cardiovascular: Normal rate, normal rhythm. No murmurs appreciated. Pulmonary: Clear to auscultation b/l, no wheezing GI: Soft, nontender, nondistended Skin: Warm and dry Neuro: CN grossly intact. No focal deficits. Strengths equal b/l. Psych: oriented x 3 LABORATORY DATA, IMAGING STUDIES, MICROBIOLOGY: Please see below. ASSESSMENT AND PLAN: 1. Severe malnutrition/cachectic - 2/2 malignancy and low appetite. - Full nutrition assessment and management. - Monitor and replace electrolytes. Seem to require replacement daily. 2. 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 To follow up with Oncology post discharge. - Patient is DNR, want assistance with nutrition optimization but does not want any aggressive intervention in the hospital at this time for BP support. - No central line placement for hypotension. 3. ? COPD - Nebs PRN for SOB. 4. Anemia - likely 2/2 severe malnutrition and malignancy. - s/p 2 pRBC. Strength slightly improved. DVT ppx: HSQ and SCD Code status: DNR Dispo: CM/PT for home safety eval. Possible placement needed or at least home care. VS, I&O, 24H, Fishbone Vital Signs/I&O Vital Signs Date Time Temp Pulse Resp B/P (MAP) Pulse Ox O2 Delivery O2 Flow Rate FiO2 01/08/19 18:00 98.5 70 20 108/69 (82) 98 01/03/19 17:44 Room Air I&O- Last 24 Hours up to 6 AM 01/08/19 06:00 Intake Total 2835 ml Output Total 2050 ml Balance 785 ml Laboratory Data 24H LABS Laboratory Tests 2 01/08/19 05:26: Nucleated Red Blood Cells % (auto) 0.0, Anion Gap 6L, Glomerular Filtration Rate > 60.0, Blood Urea Nitrogen 4L, Creatinine 0.34L, Sodium Level 142, Potassium Level 3.1L, Chloride Level 108H, Carbon Dioxide Level 28, Calcium Level 6.4L, Magnesium Level 1.7L CBC/BMP Laboratory Tests 01/08/19 05:26 Red Blood Count 3.42 L, Mean Corpuscular Volume 94.4, Mean Corpuscular Hemoglobin 30.7, Mean Corpuscular Hemoglobin Concent 32.5, Red Cell Distribution Width 21.8 H, Calcium Level 6.4 L ISABEL MEEKS MD January 08, 2019 18:35
[2019-01-08 22:00] VITALS: BP 108/69
[2019-01-09 02:00] VITALS: BP 109/66
[2019-01-09] MEDS: NS 1,000 ML IV SCH ×2 (05:32→21:40)
[2019-01-09] MEDS: SODIUM CHLORIDE 0.9% INJ 10 ML SYR IV PRN (05:33)
[2019-01-09 05:51] LABS: HEMATOCRIT 33.7 % (42.0-52.0); HEMOGLOBIN 10.8 g/dl (13.5-17.5); MEAN CORPUSCULAR HEMOGLOBIN 29.5 pg (27.0-33.0); MEAN CORPUSCULAR VOLUME 92.1 fl (80.0-96.0); PLATELET COUNT, AUTOMATED 396 10^3/uL (150-450); RED BLOOD COUNT 3.66 10^6/uL (4.30-6.10); WHITE BLOOD COUNT 4.1 10^3/uL (4.0-10.0)
[2019-01-09 06:00] VITALS: BP 109/65
[2019-01-09 06:09] LABS: BLOOD UREA NITROGEN 5 MG/DL (7-18); CALCIUM LEVEL 6.7 MG/DL (8.8-10.2); CARBON DIOXIDE LEVEL 28 MEQ/L (21-32); CHLORIDE LEVEL 109 MEQ/L (98-107); CREATININE FOR GFR 0.34 MG/DL (0.70-1.30); GLOMERULAR FILTRATION RATE > 60.0 (>49); GLUCOSE, FASTING 75 MG/DL (70-100); MAGNESIUM LEVEL 1.6 MG/DL (1.8-2.4); POTASSIUM SERUM 3.1 MEQ/L (3.5-5.1); SODIUM LEVEL 143 MEQ/L (136-145)
[2019-01-09] MEDS: POTASSIUM CHLORIDE 10 MEQ SR TABLET PO SCH (08:31)
[2019-01-09] MEDS: MAG SULF 1GM/100ML (MAG RUN) 1 GM in APPROPRIATE DILUENT 1 EA IV SCH ×3 (08:32→11:08)
[2019-01-09] MEDS: HEPARIN SOD (PORCINE) 5000 UNITS/ML VIAL SC SCH ×2 (08:32→21:40)
[2019-01-09 10:00] VITALS: BP 104/64
--- NOTE | 2019-01-09 11:50 | IPNPDOC ---
Date Seen The patient was seen on 01/09/19. Progress Note SUBJECTIVE: No physical complaints, no acute events reported. Electrolyte repletion ongoing. OBJECTIVE PHYSICAL EXAMINATION: VITAL SIGNS: Please see below. General: No acute distress, Alert. severely cachectic with significant hair loss. Eyes: Normal sclera, EOMI, JAMI HENT: Atraumatic, neck supple, moist mucous membranes Cardiovascular: Normal rate, normal rhythm. No murmurs appreciated. Pulmonary: Clear to auscultation b/l, no wheezing GI: Soft, nontender, nondistended Skin: Warm and dry Neuro: CN grossly intact. No focal deficits. Strengths equal b/l. Psych: oriented x 3 LABORATORY DATA, IMAGING STUDIES, MICROBIOLOGY: Please see below. ASSESSMENT AND PLAN: 1. Severe malnutrition/cachectic - 2/2 malignancy and low appetite. - Full nutrition assessment and management. - Monitor and replace electrolytes. Seem to require replacement daily. 2. Laryngeal cancer - s/p WILDLIFE PHOTOGRAPHER. To follow up with Oncology post discharge. - Patient is DNR, want assistance with nutrition optimization but does not want any aggressive intervention in the hospital at this time for BP support. - No central line placement for hypotension. 3. ? COPD - Nebs PRN for SOB. 4. Anemia - likely 2/2 severe malnutrition and malignancy. - s/p 2 pRBC. Strength slightly improved. DVT ppx: HSQ and SCD Code status: DNR Dispo: CM/PT for home safety eval. Possible placement needed or at least home care. VS, I&O, 24H, Fishbone Vital Signs/I&O Vital Signs Date Time Temp Pulse Resp B/P (MAP) Pulse Ox O2 Delivery O2 Flow Rate FiO2 01/09/19 10:00 98.4 72 17 104/64 (77) 99 01/03/19 17:44 Room Air I&O- Last 24 Hours up to 6 AM 01/09/19 06:00 Intake Total 1085 ml Output Total 1675 ml Balance -590 ml Laboratory Data 24H LABS Laboratory Tests 2 01/09/19 05:30: Nucleated Red Blood Cells % (auto) 0.0, Anion Gap 6L, Glomerular Filtration Rate > 60.0, Blood Urea Nitrogen 5L, Creatinine 0.34L, Sodium Level 143, Potassium Level 3.1L, Chloride Level 109H, Carbon Dioxide Level 28, Calcium Level 6.7L, Magnesium Level 1.6L CBC/BMP Laboratory Tests 01/09/19 05:30 Red Blood Count 3.66 L, Mean Corpuscular Volume 92.1, Mean Corpuscular Hemoglobin 29.5, Mean Corpuscular Hemoglobin Concent 32.0, Red Cell Distribution Width 22.1 H, Calcium Level 6.7 L ISABEL MEEKS MD January 09, 2019 11:49
[2019-01-09 14:00] VITALS: BP 102/61
[2019-01-09 18:00] VITALS: BP 102/60
[2019-01-09 22:00] VITALS: BP 121/70
[2019-01-10 02:00] VITALS: BP_SYST 121; BP_SYST 122; BP_DIAS 70
[2019-01-10] MEDS: SODIUM CHLORIDE 0.9% INJ 10 ML SYR IV PRN (05:46)
[2019-01-10 06:00] VITALS: BP 122/68
[2019-01-10 06:07] LABS: HEMATOCRIT 32.6 % (42.0-52.0); HEMOGLOBIN 10.6 g/dl (13.5-17.5); MEAN CORPUSCULAR HEMOGLOBIN 30.8 pg (27.0-33.0); MEAN CORPUSCULAR HGB CONC 32.5 g/dl (32.0-36.5); MEAN CORPUSCULAR VOLUME 94.8 fl (80.0-96.0); PLATELET COUNT, AUTOMATED 414 10^3/uL (150-450); RED BLOOD COUNT 3.44 10^6/uL (4.30-6.10); WHITE BLOOD COUNT 3.3 10^3/uL (4.0-10.0)
[2019-01-10 06:32] LABS: BLOOD UREA NITROGEN 6 MG/DL (7-18); CALCIUM LEVEL 6.6 MG/DL (8.8-10.2); CARBON DIOXIDE LEVEL 28 MEQ/L (21-32); CHLORIDE LEVEL 109 MEQ/L (98-107); CREATININE FOR GFR 0.36 MG/DL (0.70-1.30); GLOMERULAR FILTRATION RATE > 60.0 (>49); GLUCOSE, FASTING 82 MG/DL (70-100); MAGNESIUM LEVEL 1.7 MG/DL (1.8-2.4); POTASSIUM SERUM 3.3 MEQ/L (3.5-5.1); SODIUM LEVEL 142 MEQ/L (136-145)
[2019-01-10] MEDS: POTASSIUM CHLORIDE 10 MEQ SR TABLET PO SCH (08:32)
[2019-01-10] MEDS: MAG SULF 1GM/100ML (MAG RUN) 1 GM in APPROPRIATE DILUENT 1 EA IV SCH ×3 (08:32→10:42)
[2019-01-10] MEDS: HEPARIN SOD (PORCINE) 5000 UNITS/ML VIAL SC SCH ×2 (08:33→22:13)
--- NOTE | 2019-01-10 10:33 | IPNPDOC ---
Date Seen The patient was seen on 01/10/19. Progress Note SUBJECTIVE: No acute events reported. Afebrile overnight, no complaints. Electrolyte repletion ongoing. K 3.3, Mg 1.7. OBJECTIVE PHYSICAL EXAMINATION: VITAL SIGNS: Please see below. General: No acute distress, Alert. severely cachectic with significant hair loss. Eyes: Normal sclera, EOMI, JAMI HENT: Atraumatic, neck supple, moist mucous membranes Cardiovascular: Normal rate, normal rhythm. No murmurs appreciated. Pulmonary: Clear to auscultation b/l, no wheezing GI: Soft, nontender, nondistended Skin: Warm and dry Neuro: CN grossly intact. No focal deficits. Strengths equal b/l. Psych: oriented x 3 LABORATORY DATA, IMAGING STUDIES, MICROBIOLOGY: Please see below. ASSESSMENT AND PLAN: 1. Severe malnutrition/cachectic - 2/2 malignancy and low appetite. - Full nutrition assessment and management. - Monitor and replace electrolytes. Seem to require replacement daily. 2. 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 To follow up with Oncology post discharge. - Patient is DNR, want assistance with nutrition optimization but does not want any aggressive intervention in the hospital at this time for BP support. - No central line placement for hypotension. 3. ? COPD - Nebs PRN for SOB. 4. Anemia - likely 2/2 severe malnutrition and malignancy. - s/p 2 pRBC. Strength slightly improved. DVT ppx: HSQ and SCD Code status: DNR Dispo: CM/PT for home safety eval. Possible placement needed or at least home care. VS, I&O, [facility]/I&O Vital Signs Date Time Temp Pulse Resp B/P (MAP) Pulse Ox O2 Delivery O2 Flow Rate FiO2 01/10/19 06:00 98.9 64 18 122/68 (86) 97 I&O- Last 24 Hours up to 6 AM 01/10/19 05:59 Intake Total 1010 ml Output Total 1425 ml Balance -415 ml Laboratory Data 24H LABS Laboratory Tests 2 01/10/19 05:45: Nucleated Red Blood Cells % (auto) 0.0, Anion Gap 5L, Glomerular Filtration Rate > 60.0, Blood Urea Nitrogen 6L, Creatinine 0.36L, Sodium Level 142, Potassium Level 3.3L, Chloride Level 109H, Carbon Dioxide Level 28, Calcium Level 6.6L, Magnesium Level 1.7L CBC/BMP Laboratory Tests 01/10/19 05:45 Red Blood Count 3.44 L, Mean Corpuscular Volume 94.8, Mean Corpuscular Hemoglobin 30.8, Mean Corpuscular Hemoglobin Concent 32.5, Red Cell Distribution Width 21.9 H, Calcium Level 6.6 L ISABEL MEEKS MD January 10, 2019 10:32
[2019-01-10 10:59] VITALS: BP 90/50
[2019-01-10 14:00] VITALS: BP 115/73
[2019-01-10 18:00] VITALS: BP 115/71
[2019-01-10 22:00] VITALS: BP 113/71
[2019-01-11 02:00] VITALS: BP 113/70
[2019-01-11] MEDS: SODIUM CHLORIDE 0.9% INJ 10 ML SYR IV PRN ×2 (05:31→10:30)
[2019-01-11 06:00] VITALS: BP 119/66
[2019-01-11] MEDS: POTASSIUM CHLORIDE 10 MEQ SR TABLET PO SCH (08:37)
[2019-01-11] MEDS: HEPARIN SOD (PORCINE) 5000 UNITS/ML VIAL SC SCH ×2 (08:38→21:03)
[2019-01-11 10:00] VITALS: BP 121/71
[2019-01-11 10:45] LABS: HEMATOCRIT 34.8 % (42.0-52.0); HEMOGLOBIN 11.2 g/dl (13.5-17.5); MEAN CORPUSCULAR HEMOGLOBIN 29.8 pg (27.0-33.0); MEAN CORPUSCULAR HGB CONC 32.2 g/dl (32.0-36.5); MEAN CORPUSCULAR VOLUME 92.6 fl (80.0-96.0); PLATELET COUNT, AUTOMATED 456 10^3/uL (150-450); RED BLOOD COUNT 3.76 10^6/uL (4.30-6.10)
[2019-01-11 11:09] LABS: BLOOD UREA NITROGEN 5 MG/DL (7-18); CALCIUM LEVEL 6.8 MG/DL (8.8-10.2); CARBON DIOXIDE LEVEL 31 MEQ/L (21-32); CHLORIDE LEVEL 105 MEQ/L (98-107); CREATININE FOR GFR 0.54 MG/DL (0.70-1.30); GLOMERULAR FILTRATION RATE > 60.0 (>49); GLUCOSE, FASTING 125 MG/DL (70-100); POTASSIUM SERUM 3.2 MEQ/L (3.5-5.1); SODIUM LEVEL 140 MEQ/L (136-145)
[2019-01-11 14:00] VITALS: BP 123/67
[2019-01-11] MEDS: MAG SULF 1GM/100ML (MAG RUN) 1 GM in APPROPRIATE DILUENT 1 EA IV SCH ×3 (15:53→18:18)
--- NOTE | 2019-01-11 17:07 | IPNPDOC ---
Date Seen The patient was seen on 01/11/19. Progress Note SUBJECTIVE: No acute events reported. K 3.2, Mg 1.7. Electrolyte repletion ongoing. Subacute Rehab planning for placement? OBJECTIVE PHYSICAL EXAMINATION: VITAL SIGNS: Please see below. General: No acute distress, Alert. severely cachectic with significant hair loss. Eyes: Normal sclera, EOMI, JAMI HENT: Atraumatic, neck supple, moist mucous membranes Cardiovascular: Normal rate, normal rhythm. No murmurs appreciated. Pulmonary: Clear to auscultation b/l, no wheezing GI: Soft, nontender, nondistended Skin: Warm and dry Neuro: CN grossly intact. No focal deficits. Strengths equal b/l. Psych: oriented x 3 LABORATORY DATA, IMAGING STUDIES, MICROBIOLOGY: Please see below. ASSESSMENT AND PLAN: 1. Severe malnutrition/cachectic - 2/2 malignancy and low appetite. - Full nutrition assessment and management. - Monitor and replace electrolytes. Seem to require replacement daily. 2. 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 To follow up with Oncology post discharge. - Patient is DNR, want assistance with nutrition optimization but does not want any aggressive intervention in the hospital at this time for BP support. - No central line placement for hypotension. 3. ? COPD - Nebs PRN for SOB. 4. Anemia - likely 2/2 severe malnutrition and malignancy. - s/p 2 pRBC. Strength slightly improved. DVT ppx: HSQ and SCD Code status: DNR Dispo: Subacute Rehab tentatively at this time VS, I&O, 24H, Fishbone Vital Signs/I&O Vital Signs Date Time Temp Pulse Resp B/P (MAP) Pulse Ox O2 Delivery O2 Flow Rate FiO2 01/11/19 14:00 97.3 75 18 123/67 (85) 95 I&O- Last 24 Hours up to 6 AM 01/11/19 06:00 Intake Total 1550 ml Output Total 1600 ml Balance -50 ml Laboratory Data 24H LABS Laboratory Tests 2 01/11/19 05:42: Magnesium Level 1.7L 01/11/19 10:25: Nucleated Red Blood Cells % (auto) 0.0, Anion Gap 4L, Glomerular Filtration Rate > 60.0, Blood Urea Nitrogen 5L, Creatinine 0.54L, Sodium Level 140, Potassium Level 3.2L, Chloride Level 105, Carbon Dioxide Level 31, Calcium Level 6.8L CBC/BMP Laboratory Tests 01/11/19 10:25 Red Blood Count 3.76 L, Mean Corpuscular Volume 92.6, Mean Corpuscular Hemoglobin 29.8, Mean Corpuscular Hemoglobin Concent 32.2, Red Cell Distribution Width 21.8 H, Calcium Level 6.8 L ISABEL MEEKS MD January 11, 2019 17:07
[2019-01-11 18:00] VITALS: BP 124/76
[2019-01-11 22:00] VITALS: BP 112/59
[2019-01-12 02:00] VITALS: BP_SYST 120; BP_SYST 123; BP_DIAS 65; BP_DIAS 74
[2019-01-12] MEDS: SODIUM CHLORIDE 0.9% INJ 10 ML SYR IV PRN (04:34)
[2019-01-12 06:00] VITALS: BP 122/69
[2019-01-12 06:02] LABS: BLOOD UREA NITROGEN 7 MG/DL (7-18); CALCIUM LEVEL 7.1 MG/DL (8.8-10.2); CARBON DIOXIDE LEVEL 29 MEQ/L (21-32); CHLORIDE LEVEL 106 MEQ/L (98-107); GLOMERULAR FILTRATION RATE > 60.0 (>49); GLUCOSE, FASTING 89 MG/DL (70-100); MAGNESIUM LEVEL 1.8 MG/DL (1.8-2.4); POTASSIUM SERUM 3.5 MEQ/L (3.5-5.1); SODIUM LEVEL 140 MEQ/L (136-145)
[2019-01-12] MEDS: POTASSIUM CHLORIDE 10 MEQ SR TABLET PO SCH (09:32)
[2019-01-12] MEDS: HEPARIN SOD (PORCINE) 5000 UNITS/ML VIAL SC SCH ×2 (09:33→21:46)
[2019-01-12 10:00] VITALS: BP 118/62
[2019-01-12 14:00] VITALS: BP 120/72
--- NOTE | 2019-01-12 15:11 | IPNPDOC ---
Subjective Date Seen The patient was seen on 01/12/19. Subjective Chief Complaint/HPI Patient seen and examined at the bedside. No acute overnight events noted. Objective Physical Examination General Exam: Positive: Alert, Cooperative, No Acute Distress ENT Exam: Positive: Atraumatic, Other ENT (+Trach, Capped) Chest Exam: Positive: Diminished Heart Exam: Positive: Rate Normal, Normal S1, Normal S2 Abdomen Exam: Positive: Soft; Negative: Tenderness Extremity Exam: Negative: Tenderness, Swelling Psych Exam: Positive: Oriented x 3 Assessment /Plan Plan/VTE VTE Prophylaxis Ordered?: Yes Plan Severe malnutrition/cachectic 2/2 malignancy and low appetite. Full nutrition assessment and management noted--Patient with adequate PO intake here as per Nutrition History of Metastatic Head & Neck Cancer to the Lung s/p NITRO MAN. To follow up with Oncology post discharge. COPD Nebs PRN for SOB. Anemia likely 2/2 severe malnutrition and malignancy. No overt source of bleeding noted s/p 2 pRBC DVT ppx Heparin SC Code status: DNR Dispo: Subacute Rehab tentatively at this time, ROSA/BANDAR on board. VS, I&O, 24H, Fishbone Vital Signs/I&O Vital Signs Date Time Temp Pulse Resp B/P (MAP) Pulse Ox O2 Delivery O2 Flow Rate FiO2 01/12/19 14:00 98.1 70 18 120/72 (88) 95 I&O- Last 24 Hours up to 6 AM 01/12/19 06:00 Intake Total 1100 ml Output Total 1600 ml Balance -500 ml Laboratory Data 24H LABS Laboratory Tests 2 01/12/19 04:37: Anion Gap 5L, Glomerular Filtration Rate > 60.0, Blood Urea Nitrogen 7, Creatinine 0.40L, Sodium Level 140, Potassium Level 3.5, Chloride Level 106, Carbon Dioxide Level 29, Calcium Level 7.1L, Magnesium Level 1.8 CBC/BMP Laboratory Tests 01/12/19 04:37 Calcium Level 7.1 L JOE TOM MD January 12, 2019 15:11
[2019-01-12 18:00] VITALS: BP 117/71
[2019-01-12 22:00] VITALS: BP 138/63
[2019-01-13 02:00] VITALS: BP 122/64
[2019-01-13 06:30] VITALS: BP 114/60
[2019-01-13] MEDS: SODIUM CHLORIDE 0.9% INJ 10 ML SYR IV PRN ×2 (06:30→22:07)
[2019-01-13 07:07] LABS: BLOOD UREA NITROGEN 6 MG/DL (7-18); CALCIUM LEVEL 7.3 MG/DL (8.8-10.2); CARBON DIOXIDE LEVEL 28 MEQ/L (21-32); CHLORIDE LEVEL 105 MEQ/L (98-107); CREATININE FOR GFR 0.38 MG/DL (0.70-1.30); GLOMERULAR FILTRATION RATE > 60.0 (>49); GLUCOSE, FASTING 74 MG/DL (70-100); POTASSIUM SERUM 3.6 MEQ/L (3.5-5.1); SODIUM LEVEL 140 MEQ/L (136-145)
[2019-01-13 08:26] LABS: MAGNESIUM LEVEL 1.4 MG/DL (1.8-2.4)
[2019-01-13] MEDS: HEPARIN SOD (PORCINE) 5000 UNITS/ML VIAL SC SCH ×2 (09:00→22:01)
[2019-01-13] MEDS: POTASSIUM CHLORIDE 10 MEQ SR TABLET PO SCH (09:00)
[2019-01-13 10:00] VITALS: BP 114/65
[2019-01-13] MEDS: MAG SULF 1GM/100ML (MAG RUN) 1 GM in APPROPRIATE DILUENT 1 EA IV SCH ×3 (12:54→14:00)
[2019-01-13 14:00] VITALS: BP 107/58
--- NOTE | 2019-01-13 14:57 | IPNPDOC ---
Subjective Date Seen The patient was seen on 01/13/19. Subjective Chief Complaint/HPI Patient seen and examined at the bedside. Does not endorse any acute complaints other than generalized weakness at this time. States that he has been tolerating a by mouth diet without any acute complaints. Objective Physical Examination General Exam: Positive: Alert, Cooperative, No Acute Distress ENT Exam: Positive: Atraumatic, Other ENT (+Trach, Capped) Chest Exam: Positive: Diminished Heart Exam: Positive: Rate Normal, Normal S1, Normal S2 Abdomen Exam: Positive: Soft; Negative: Tenderness Extremity Exam: Negative: Tenderness, Swelling Psych Exam: Positive: Oriented x 3 Assessment /Plan Plan/VTE VTE Prophylaxis Ordered?: Yes Plan Severe malnutrition/cachectic 2/2 malignancy and low appetite. Full nutrition assessment and management noted--Patient with adequate PO intake here as per Nutrition History of Metastatic Head & Neck Cancer to the Lung Heme/Onc notes from Dr. Casiano reviewed, I did speak to her via telephone this afternoon as well. At this time, she is not aware of any new information obtained from the patient's previous primary oncologist based out of [place], [place]. She agrees with continued nutritional/functional optimization with the hopes of revisiting therapeutic options in the future pending continued clinical improvement, and will schedule a follow up appointment in 3 weeks. s/p RUBY DEVELOPER. To follow up with Oncology post discharge. COPD Nebs PRN for SOB. Anemia likely 2/2 severe malnutrition and malignancy. No overt source of bleeding noted s/p 2 pRBC DVT ppx Heparin SC Code status: DNR Dispo: Subacute Rehab tentatively at this time, CM/BANDAR on board. I did attempt to call the patient's brother Rich Patten ([phone]) to update him on the patient's current clinical status, disposition, and outlook moving forward. However, there was no answer. We will continue to keep the patient's family in the loop. VS, I&O, 24H, [facility] Vital Signs/I&O Vital Signs Date Time Temp Pulse Resp B/P (MAP) Pulse Ox O2 Delivery O2 Flow Rate FiO2 01/13/19 10:00 98.2 79 18 114/65 (81) 95 I&O- Last 24 Hours up to 6 AM 01/13/19 06:00 Intake Total 1580 ml Output Total 750 ml Balance 830 ml Laboratory Data 24H LABS Laboratory Tests 2 01/13/19 06:25: Anion Gap 7L, Glomerular Filtration Rate > 60.0, Blood Urea Nitrogen 6L, Creatinine 0.38L, Sodium Level 140, Potassium Level 3.6, Chloride Level 105, Carbon Dioxide Level 28, Calcium Level 7.3L, Magnesium Level 1.4L 01/13/19 12:09: Bedside Glucose (Misc Panel) 114 CBC/BMP Laboratory Tests 01/13/19 06:25 Calcium Level 7.3 L JOE TOM MD January 13, 2019 14:57
[2019-01-13 18:00] VITALS: BP 134/85
[2019-01-13 22:00] VITALS: BP 124/68
[2019-01-14 02:00] VITALS: BP 120/72
[2019-01-14] MEDS: SODIUM CHLORIDE 0.9% INJ 10 ML SYR IV PRN (05:24)
[2019-01-14 06:00] VITALS: BP 124/71
[2019-01-14 06:08] LABS: BLOOD UREA NITROGEN 8 MG/DL (7-18); CALCIUM LEVEL 7.3 MG/DL (8.8-10.2); CARBON DIOXIDE LEVEL 28 MEQ/L (21-32); CHLORIDE LEVEL 105 MEQ/L (98-107); CREATININE FOR GFR 0.43 MG/DL (0.70-1.30); GLOMERULAR FILTRATION RATE > 60.0 (>49); GLUCOSE, FASTING 83 MG/DL (70-100); MAGNESIUM LEVEL 1.6 MG/DL (1.8-2.4); POTASSIUM SERUM 3.9 MEQ/L (3.5-5.1); SODIUM LEVEL 139 MEQ/L (136-145)
[2019-01-14] MEDS ORDERED: MAGNESIUM OXIDE 400 MG TAB (MAG-OX) PO ONE (09:00)
[2019-01-14] MEDS: HEPARIN SOD (PORCINE) 5000 UNITS/ML VIAL SC SCH ×2 (09:43→21:56)
[2019-01-14] MEDS: POTASSIUM CHLORIDE 10 MEQ SR TABLET PO SCH (09:43)
[2019-01-14 10:00] VITALS: BP 101/59
--- NOTE | 2019-01-14 12:03 | IPNPDOC ---
Subjective Date Seen The patient was seen on 01/14/19. Subjective Chief Complaint/HPI Patient seen and examined at the bedside. No acute overnight events noted. Objective Physical Examination General Exam: Positive: Alert, Cooperative, No Acute Distress ENT Exam: Positive: Atraumatic, Other ENT (+Trach, Capped) Chest Exam: Positive: Diminished Heart Exam: Positive: Rate Normal, Normal S1, Normal S2 Abdomen Exam: Positive: Soft; Negative: Tenderness Extremity Exam: Negative: Tenderness, Swelling Psych Exam: Positive: Oriented x 3 Assessment /Plan Plan/VTE VTE Prophylaxis Ordered?: Yes Plan Severe malnutrition/cachectic 2/2 malignancy and low appetite. Full nutrition assessment and management noted--Patient with adequate PO intake here as per Nutrition History of Metastatic Head & Neck Cancer to the Lung, ?adrenal gland s/p SHOP GIRL Heme/Onc notes from Dr. Casiano reviewed, I did speak to her via telephone yesterday afternoon and this morning as well. Recent PET scan results from October 2018 were discussed, which included decrease in size of a laryngeal mass, however increase in mass/activity of right upper lobe in the lung. The patient had a mixed response to his previous chemotherapeutic regimen. At this time, Dr. Casiano agrees with continued nutritional/functional optimization with the hopes of revisiting therapeutic options in the future pending continued clinical impr ovement, and will schedule a follow up appointment in 3 weeks. To follow up with Oncology post discharge. COPD Nebs PRN for SOB. Anemia likely 2/2 severe malnutrition and malignancy. No overt source of bleeding noted s/p 2 pRBC DVT ppx Heparin SC Code status: DNR Dispo: Subacute Rehab tentatively at this time, ROSA/BANDAR on board. VS, I&O, 24H, [facility] Vital Signs/I&O Vital Signs Date Time Temp Pulse Resp B/P (MAP) Pulse Ox O2 Delivery O2 Flow Rate FiO2 01/14/19 10:00 98.5 85 24 101/59 (73) 95 I&O- Last 24 Hours up to 6 AM 01/14/19 06:00 Intake Total 1200 ml Output Total 2500 ml Balance -1300 ml Laboratory Data 24H LABS Laboratory Tests 2 01/13/19 12:09: Bedside Glucose (Misc Panel) 114 01/14/19 05:33: Anion Gap 6L, Glomerular Filtration Rate > 60.0, Blood Urea Nitrogen 8, Creatinine 0.43L, Sodium Level 139, Potassium Level 3.9, Chloride Level 105, Carbon Dioxide Level 28, Calcium Level 7.3L, Magnesium Level 1.6L CBC/BMP Laboratory Tests 01/14/19 05:33 Calcium Level 7.3 L JOE TOM MD January 14, 2019 12:03
[2019-01-14 12:13] LABS: CORTISOL BASELINE 17.8 UG/DL (4.3-22.4)
[2019-01-14 14:07] VITALS: BP 130/90
--- NOTE | 2019-01-14 17:46 | NUR ---
Pt seen for clinical swallow evaluation as he is refusing ground meats. Pt request chicken nuggets. Pt tolerated them well with small bites and using ranch dressing to moisten. Pt insists that he know what he can and cannot eat. Recommend: Regular solids and liquids. Extra sauces and gravies. Upright at bed edge or in a chair for all meals. Suzanne open during meals with frequent checks. Addendum: 01/14/19 at 1748 by CARLIN RUVALCABA [facility] Amended: Links added.
[2019-01-14 18:00] VITALS: BP 129/81
[2019-01-14 22:00] VITALS: BP 128/80
[2019-01-15 02:00] VITALS: BP 118/74
[2019-01-15] MEDS: SODIUM CHLORIDE 0.9% INJ 10 ML SYR IV PRN (05:26)
[2019-01-15 06:00] VITALS: BP 133/73
[2019-01-15 06:02] LABS: BLOOD UREA NITROGEN 8 MG/DL (7-18); CALCIUM LEVEL 7.1 MG/DL (8.8-10.2); CARBON DIOXIDE LEVEL 29 MEQ/L (21-32); CHLORIDE LEVEL 104 MEQ/L (98-107); CREATININE FOR GFR 0.32 MG/DL (0.70-1.30); GLOMERULAR FILTRATION RATE > 60.0 (>49); GLUCOSE, FASTING 84 MG/DL (70-100); POTASSIUM SERUM 4.1 MEQ/L (3.5-5.1); SODIUM LEVEL 139 MEQ/L (136-145)
[2019-01-15 10:00] VITALS: BP 112/66
[2019-01-15] MEDS: HEPARIN SOD (PORCINE) 5000 UNITS/ML VIAL SC SCH ×2 (10:14→20:55)
[2019-01-15] MEDS: POTASSIUM CHLORIDE 10 MEQ SR TABLET PO SCH (10:14)
--- NOTE | 2019-01-15 13:44 | IPNPDOC ---
Subjective Date Seen The patient was seen on 01/15/19. Subjective Chief Complaint/HPI Patient seen and examined at the bedside. No acute overnight events noted. Objective Physical Examination General Exam: Positive: Alert, Cooperative, No Acute Distress ENT Exam: Positive: Atraumatic, Other ENT (+Trach, Capped) Chest Exam: Positive: Diminished Heart Exam: Positive: Rate Normal, Normal S1, Normal S2 Abdomen Exam: Positive: Soft; Negative: Tenderness Extremity Exam: Negative: Tenderness, Swelling Psych Exam: Positive: Oriented x 3 Assessment /Plan Plan/VTE VTE Prophylaxis Ordered?: Yes Plan Severe malnutrition/cachectic 2/2 malignancy and low appetite. 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 Casiano reviewed, I did speak to her via telephone yesterday afternoon and this morning as well. Recent PET scan results from October 2018 were discussed, which included decrease in size of a laryngeal mass, however increase in mass/activity of right upper lobe in the lung. The patient had a mixed response to his previous chemotherapeutic regimen. At this time, Dr. Casiano agrees with continued nutritional/functional optimization with the hopes of revisiting therapeutic options in the future pending continued clinical impro vement, and will schedule a follow up appointment in 3 weeks. To follow up with Oncology post discharge. COPD Nebs PRN for SOB. Anemia likely 2/2 severe malnutrition and malignancy. No overt source of bleeding noted s/p 2 pRBC DVT ppx Heparin SC Code status: DNR Dispo: Subacute Rehab tentatively at this time, ROSA/BANDAR on board. VS, I&O, 24H, [facility] Vital Signs/I&O Vital Signs Date Time Temp Pulse Resp B/P (MAP) Pulse Ox O2 Delivery O2 Flow Rate FiO2 01/15/19 10:00 97.9 88 18 112/66 (81) 99 I&O- Last 24 Hours up to 6 AM 01/15/19 06:00 Intake Total 1930 ml Output Total 900 ml Balance 1030 ml Laboratory Data 24H LABS Laboratory Tests 2 01/15/19 05:25: Anion Gap 6L, Glomerular Filtration Rate > 60.0, Blood Urea Nitrogen 8, Crea tinine 0.32L, Sodium Level 139, Potassium Level 4.1, Chloride Level 104, Carbon Dioxide Level 29, Calcium Level 7.1L CBC/BMP Laboratory Tests 01/15/19 05:25 Calcium Level 7.1 L JOE TOM MD Jan 15, 2019 13:44
[2019-01-15 14:00] VITALS: BP 126/76
[2019-01-15 22:00] VITALS: BP 126/69
[2019-01-16 02:00] VITALS: BP 127/67
[2019-01-16 06:00] VITALS: BP 112/61
[2019-01-16 06:51] LABS: BLOOD UREA NITROGEN 7 MG/DL (7-18); CALCIUM LEVEL 7.4 MG/DL (8.8-10.2); CARBON DIOXIDE LEVEL 27 MEQ/L (21-32); CHLORIDE LEVEL 104 MEQ/L (98-107); CREATININE FOR GFR 0.38 MG/DL (0.70-1.30); GLOMERULAR FILTRATION RATE > 60.0 (>49); GLUCOSE, FASTING 82 MG/DL (70-100); POTASSIUM SERUM 4.2 MEQ/L (3.5-5.1); SODIUM LEVEL 138 MEQ/L (136-145)
[2019-01-16 08:22] LABS: MAGNESIUM LEVEL 1.6 MG/DL (1.8-2.4)
[2019-01-16 10:00] VITALS: BP 99/69
[2019-01-16] MEDS: POTASSIUM CHLORIDE 10 MEQ SR TABLET PO SCH (10:22)
[2019-01-16] MEDS: HEPARIN SOD (PORCINE) 5000 UNITS/ML VIAL SC SCH ×2 (10:22→21:30)
[2019-01-16 14:00] VITALS: BP 100/66
--- NOTE | 2019-01-16 14:08 | IPNPDOC ---
Subjective Date Seen The patient was seen on 01/16/19. Subjective Chief Complaint/HPI Patient seen and examined at the bedside. No acute overnight events noted. Objective Physical Examination General Exam: Positive: Alert, Cooperative, No Acute Distress ENT Exam: Positive: Atraumatic, Other ENT (+Trach, Capped) Chest Exam: Positive: Diminished Heart Exam: Positive: Rate Normal, Normal S1, Normal S2 Abdomen Exam: Positive: Soft; Negative: Tenderness Extremity Exam: Negative: Tenderness, Swelling Psych Exam: Positive: Oriented x 3 Assessment /Plan Plan/VTE VTE Prophylaxis Ordered?: Yes Plan Severe malnutrition/cachectic 2/2 malignancy and low appetite. 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 Casiano reviewed, I did speak to her via telephone. Recent PET scan results from October 2018 were discussed, which included decrease in size of a laryngeal mass, however increase in mass/activity of right upper lobe in the lung. The patient had a mixed response to his previous chemotherapeutic regimen. At this time, Dr. Casiano agrees with continued nutritional/functional optimization with the hopes of revisiting therapeutic options in the future pending continued clinical improvement, and will schedule a follow up appoint ment in 3 weeks. To follow up with Oncology post discharge. COPD Nebs PRN for SOB. Anemia likely 2/2 severe malnutrition and malignancy. No overt source of bleeding noted s/p 2 pRBC DVT ppx Heparin SC Code status: DNR Dispo: Subacute Rehab tentatively at this time, CM/BANDAR on board. VS, I&O, 24H, Fishbone Vital Signs/I&O Vital Signs Date Time Temp Pulse Resp B/P (MAP) Pulse Ox O2 Delivery O2 Flow Rate FiO2 01/16/19 10:00 98.5 95 18 99/69 (79) 95 I&O- Last 24 Hours up to 6 AM 01/16/19 06:00 Intake Total 720 ml Output Total 1200 ml Balance -480 ml Laboratory Data 24H LABS Laboratory Tests 2 01/16/19 06:04: Anion Gap 7L, Glomerular Filtration Rate > 60.0, Blood Urea Nitrogen 7, Creatinine 0.38L, Sodium Level 138, Potassium Level 4.2, Chloride Level 104, Carbon Dioxide Level 27, Calcium Level 7.4L, Magnesium Level 1.6L CBC/BMP Laboratory Tests 01/16/19 06:04 Calcium Level 7.4 L JOE TOM MD Jan 16, 2019 14:08
[2019-01-16] MEDS ORDERED: MAGNESIUM OXIDE 400 MG TAB (MAG-OX) PO ONE (15:00)
[2019-01-16] MEDS: SODIUM CHLORIDE 0.9% INJ 10 ML SYR IV PRN (17:21)
[2019-01-16 18:00] VITALS: BP 101/65
[2019-01-16 22:00] VITALS: BP 103/65
[2019-01-17 02:00] VITALS: BP 105/62
[2019-01-17 06:00] VITALS: BP 106/60
[2019-01-17 10:00] VITALS: BP 90/54
[2019-01-17] MEDS: POTASSIUM CHLORIDE 10 MEQ SR TABLET PO SCH (11:01)
[2019-01-17] MEDS: HEPARIN SOD (PORCINE) 5000 UNITS/ML VIAL SC SCH ×2 (11:01→21:40)
[2019-01-17 14:00] VITALS: BP 108/71
--- NOTE | 2019-01-17 15:44 | IPNPDOC ---
Subjective Date Seen The patient was seen on 01/17/19. Subjective Chief Complaint/HPI Patient seen and examined at bedside. No acute overnight events noted. Objective Physical Examination General Exam: Positive: Alert, Cooperative, No Acute Distress ENT Exam: Positive: Atraumatic, Other ENT (+Trach, Capped) Chest Exam: Positive: Diminished Heart Exam: Positive: Rate Normal, Normal S1, Normal S2 Abdomen Exam: Positive: Soft; Negative: Tenderness Extremity Exam: Negative: Tenderness, Swelling Psych Exam: Positive: Oriented x 3 Assessment /Plan Plan/VTE VTE Prophylaxis Ordered?: Yes Plan Severe malnutrition/cachectic 2/2 malignancy and low appetite. Full nutrition assessment and management noted--Patient with adequate PO intake here as per Nutrition History of Metastatic Head & Neck Cancer to the Lung, ?adrenal gland s/p ER TECH Heme/Onc notes from Dr. Casiano reviewed, I did speak to her via telephone. Recent PET scan results from October 2018 were discussed, which included decrease in size of a laryngeal mass, however increase in mass/activity of right upper lobe in the lung. The patient had a mixed response to his previous chemotherapeutic regimen. At this time, Dr. Casiano agrees with continued nutritional/functional optimization with the hopes of revisiting therapeutic options in the future pending continued clinical improvement, and will schedule a follow up appointment in 3 weeks. Patient's brother Rich Patten updated via telephone about the aforementioned re sults, and he agrees with the plan moving forward. To follow up with Oncology post discharge. COPD Nebs PRN for SOB. Anemia likely 2/2 severe malnutrition and malignancy. No overt source of bleeding noted s/p 2 pRBC DVT ppx Heparin SC Code status: DNR Dispo: Subacute Rehab tentatively at this time, CM/BANDAR on board. VS, I&O, 24H, Fishbone Vital Signs/I&O Vital Signs Date Time Temp Pulse Resp B/P (MAP) Pulse Ox O2 Delivery O2 Flow Rate FiO2 01/17/19 10:00 98.9 98 18 90/54 (66) 98 I&O- Last 24 Hours up to 6 AM 01/17/19 05:59 Intake Total 1680 ml Output Total 2225 ml Balance -545 ml JOE TOM MD Jan 17, 2019 15:44
[2019-01-17 17:30] VITALS: BP 130/60
[2019-01-17 22:00] VITALS: BP 106/52
[2019-01-18 02:00] VITALS: BP 125/64
[2019-01-18 04:00] VITALS: BP 125/64
[2019-01-18 06:00] VITALS: BP 104/53
[2019-01-18] MEDS: POTASSIUM CHLORIDE 10 MEQ SR TABLET PO SCH (10:41)
[2019-01-18] MEDS: HEPARIN SOD (PORCINE) 5000 UNITS/ML VIAL SC SCH ×2 (10:41→21:41)
[2019-01-18] MEDS: SODIUM CHLORIDE 0.9% INJ 10 ML SYR IV PRN (10:42)
--- NOTE | 2019-01-18 11:08 | IPNPDOC ---
Subjective Date Seen The patient was seen on 01/18/19. Subjective Chief Complaint/HPI Patient seen and examined at the bedside. No acute overnight events noted. Objective Physical Examination General Exam: Positive: Alert, Cooperative, No Acute Distress ENT Exam: Positive: Atraumatic, Other ENT (+Trach, Capped) Chest Exam: Positive: Diminished Heart Exam: Positive: Rate Normal, Normal S1, Normal S2 Abdomen Exam: Positive: Soft; Negative: Tenderness Extremity Exam: Negative: Tenderness, Swelling Psych Exam: Positive: Oriented x 3 Assessment /Plan Plan/VTE VTE Prophylaxis Ordered?: Yes Plan Severe malnutrition/cachectic 2/2 malignancy and low appetite. 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 Casiano reviewed, I did speak to her via telephone. Recent PET scan results from October 2018 were discussed, which included decrease in size of a laryngeal mass, however increase in mass/activity of right upper lobe in the lung. The patient had a mixed response to his previous chemotherapeutic regimen. At this time, Dr. Casiano agrees with continued nutritional/functional optimization with the hopes of revisiting therapeutic options in the future pending continued clinical improvement, and will schedule a follow up appointment in 3 weeks. Patient's brother Rich Patten updated via telephone about the aforementioned results, and he agrees with the plan moving forward. To follow up with Oncology post discharge. COPD Nebs PRN for SOB. Anemia likely 2/2 severe malnutrition and malignancy. No overt source of bleeding noted s/p 2 pRBC DVT ppx Heparin SC Code status: DNR Dispo: Subacute Rehab tentatively at this time, CM/BANDAR on board. VS, I&O, 24H, Fishbone Vital Signs/I&O Vital Signs Date Time Temp Pulse Resp B/P (MAP) Pulse Ox O2 Delivery O2 Flow Rate FiO2 01/18/19 06:00 97.9 82 16 104/53 (70) 98 I&O- Last 24 Hours up to 6 AM 01/18/19 06:00 Intake Total 960 ml Output Total 1200 ml Balance -240 ml JOE TOM MD Jan 18, 2019 11:07
[2019-01-18 14:00] VITALS: BP 108/63
[2019-01-18 22:00] VITALS: BP 108/65
[2019-01-19 02:00] VITALS: BP 103/62
[2019-01-19 06:00] VITALS: BP 103/60
[2019-01-19] MEDS: HEPARIN SOD (PORCINE) 5000 UNITS/ML VIAL SC SCH ×2 (10:13→22:01)
[2019-01-19] MEDS: POTASSIUM CHLORIDE 10 MEQ SR TABLET PO SCH (10:13)
[2019-01-19 14:00] VITALS: BP 126/81
[2019-01-19 22:00] VITALS: BP 120/69
--- NOTE | 2019-01-19 22:08 | IPNPDOC ---
Subjective Date Seen The patient was seen on 01/19/19. Subjective Chief Complaint/HPI Pt was seen and examined at bedside. Denies any change in his general condition. No acute distress. General: Reports: Normal Appetite; Denies: Chills, Night Sweats, Fatigue, Malaise Constitutional: Denies: Chills, Fever, Night Sweats Eyes: Denies: Pain, Vision change ENT: Denies: Head Aches, Ear Pain, Dysphagia Skin: Denies: Rash, Lesions, Breakdown Pulmonary: Denies: Dyspnea, Cough Cardiovascular: Denies: Chest Pain, Palpitations, Orthopnea, Paroxysmal Noc. Dyspnea, Lt Headedness Gastrointestinal: Denies: Nausea, Vomiting, Abdominal Pain, Diarrhea, Constipa tion Genitourinary: Denies: Dysuria, Frequency, Incontinence, Retention Hematologic: Denies: Bruising, Bleeding Excessively Objective Physical Examination General Exam: Positive: Alert, Cooperative, No Acute Distress ENT Exam: Positive: Atraumatic, Other ENT (+Trach, Capped) Chest Exam: Positive: Diminished Heart Exam: Positive: Rate Normal, Normal S1, Normal S2 Abdomen Exam: Positive: Soft; Negative: Tenderness Extremity Exam: Negative: Tenderness, Swelling Psych Exam: Positive: Oriented x 3 Assessment /Plan Assessment Pt with Hx of 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 Currently will continue current management for comorbid conditions. Awaiting placement to [facility]. It was discussed in multidisciplinary round that pt current living situation not appropriate for him to return to same facility due to extensive bug infestation. SW on board for placement. Plan/VTE VTE Prophylaxis Ordered?: Yes VS, I&O, 24H, Fishbone Vital Signs/I&O Vital Signs Date Time Temp Pulse Resp B/P (MAP) Pulse Ox O2 Delivery O2 Flow Rate FiO2 01/19/19 14:00 98.2 72 18 126/81 (96) 98 I&O- Last 24 Hours up to 6 AM 01/19/19 06:00 Intake Total 2330 ml Output Total 1225 ml Balance 1105 ml JACQUES FRIEDMAN MD Jan 19, 2019 22:08
[2019-01-20 06:00] VITALS: BP 119/65
[2019-01-20] MEDS: POTASSIUM CHLORIDE 10 MEQ SR TABLET PO SCH (09:57)
[2019-01-20] MEDS: HEPARIN SOD (PORCINE) 5000 UNITS/ML VIAL SC SCH ×2 (09:58→21:31)
[2019-01-20 14:00] VITALS: BP 112/66
--- NOTE | 2019-01-21 05:33 | IPNPDOC ---
Text Note Date of Service The patient was seen on 01/20/19. NOTE Chief Complaint/HPI Pt was seen and examined at bedside. Denies any SOB or CP. Denies any acute complaints. General: Reports: Normal Appetite; Denies: Chills, Night Sweats, Fatigue, Malaise Constitutional: Denies: Chills, Fever, Night Sweats Eyes: Denies: Pain, Vision change ENT: Denies: Head Aches, Ear Pain, Dysphagia Skin: Denies: Rash, Lesions, Breakdown Pulmonary: Denies: Dyspnea, Cough Cardiovascular: Denies: Chest Pain, Palpitations, Orthopnea, Paroxysmal Noc. Dyspnea, Lt Headedness Gastrointestinal: Denies: Nausea, Vomiting, Abdominal Pain, Diarrhea, Constipation Genitourinary: Denies: Dysuria, Frequency, Incontinence, Retention Hematologic: Denies: Bruising, Bleeding Excessively Physical Examination General Exam: Positive: Alert, Cooperative, No Acute Distress ENT Exam: Positive: Atraumatic, Other ENT (+Trach, Capped) Chest Exam: Positive: Diminished Heart Exam: Positive: Rate Normal, Normal S1, Normal S2 Abdomen Exam: Positive: Soft; Negative: Tenderness Extremity Exam: Negative: Tenderness, Swelling Psych Exam: Positive: Oriented x 3 Assessment Pt with Hx of 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 Currently will continue current management for comorbid conditions. Awaiting placement to [facility]. It was discussed in multidisciplinary round that pt current living situation not appropriate for him to return to same facility due to extensive bug infestation. SW on board for placement. Vital Signs Date Time Temp Pulse Resp B/P (MAP) Pulse Ox O2 Delivery O2 Flow Rate FiO2 01/20/19 14:00 99.1 82 16 112/66 (81) 100 01/20/19 06:00 98.1 77 15 119/65 (83) 98 Intake & Output 01/21/19 06:00 Intake Total 720 ml Balance 720 ml Current Medications Medications (Trade) Dose Ordered Sig/Marquita Route PRN Reason Start Time Stop Time Status Last Admin Dose Admin Heparin Sodium (Heparin (Flush)) 500 units ASDIRECTED PRN IV SEE LABEL COMMENTS 01/03/19 13:00 01/18/19 10:41 500 UNITS Heparin Sodium (Porcine) (Heparin) 5,000 units Q12H SC 01/03/19 21:00 01/20/19 21:31 5,000 UNITS Potassium Chloride (Micro-K Extencaps) 40 meq DAILY PO 01/09/19 09:00 01/20/19 09:57 40 MEQ Sodium Chloride (Saline Lock Flush) 10 ml ASDIRECTED PRN IV SEE LABEL COMMENTS 01/03/19 13:00 01/18/19 10:42 10 ML VS,Fishbone, I+O VS, Fishbone, I+O Vital Signs Date Time Temp Pulse Resp B/P (MAP) Pulse Ox O2 Delivery O2 Flow Rate FiO2 01/20/19 14:00 99.1 82 16 112/66 (81) 100 I&O- Last 24 Hours up to 6 AM 01/21/19 06:00 Intake Total 720 ml Balance 720 ml JACQUES FRIEDMAN MD Jan 21, 2019 05:33
[2019-01-21 06:00] VITALS: BP 110/72
[2019-01-21] MEDS: HEPARIN SOD (PORCINE) 5000 UNITS/ML VIAL SC SCH (09:21)
[2019-01-21] MEDS: POTASSIUM CHLORIDE 10 MEQ SR TABLET PO SCH (09:21)
--- NOTE | 2019-01-24 06:33 | DS.PDOC ---
Discharge Summary General Date of Admission January 03, 2019 at 17:14 Date of Discharge 01/21/19 Discharge Summary PROCEDURES PERFORMED DURING STAY: [None]. ADMITTING DIAGNOSES: 1. Severe protein/calorie malnutrition 2. Cachexia 3. Generalized weakness/Deconditioning/Failure to thrive 4. Hypotension 5. Symptomatic Anemia requiring transfusion 6. Hypocalcemia 7. 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 Patient has had chemo/RT and normally follows at [facility] but recently decided to go to [facility] [place] and start following Oncology here. He went in for his first appointment today noted to be severely cachectic with hypotension and was sent to the ER. Patient reports generalized weakness and lack of appetite but otherwise no significant complaints. He was found to be covered in bed bugs and disheveled. HOSPITAL COURSE: Pt was admitted to [facility] with above presentation, pt was placed on supplemental diet as per nutrition consult, received 2 u PRBC in view of symptomatic anemia, electrolytes were replaced. Covering hospitalist physician reached out to oncologist who recommended nutritional and supportive measures while in hospital and outpt visit for further cancer targeted therapies. DISCHARGE MEDICATIONS: Please see below. ALLERGIES: Please see below. PHYSICAL EXAMINATION ON DISCHARGE: General: No acute distress, Alert. Disheveled, severely cachectic with significant hair loss. Eyes: Normal sclera, EOMI, JAMI HENT: Atraumatic, neck supple, moist mucous membranes Cardiovascular: Normal rate, normal rhythm. No murmurs appreciated. Pulmonary: Clear to auscultation b/l, no wheezing GI: Soft, nontender, nondistended Skin: Warm and dry Neuro: CN grossly intact. No focal deficits. Strengths equal b/l. Psych: oriented x 3 LABORATORY DATA: Please see below. IMAGIN01/04/19 CXR: New Rt upper lobe patchy opacity with scarring, Trach in place, central venous cath in place ACTIVITY: [As tolerated]. DISPOSITION: CA ITEMS TO FOLLOWUP ON OUTPATIENT: 1. Oncology within 3 weeks as per schedule DISCHARGE CONDITION: Guarded TIME SPENT ON DISCHARGE: Greater than 30 minutes. Vital Signs/I&Os Vital Signs Date Time Temp Pulse Resp B/P (MAP) Pulse Ox O2 Delivery O2 Flow Rate FiO2 01/21/19 06:00 97.4 77 15 110/72 (85) 99 Discharge Medications Scheduled PRN Acetaminophen (Acetaminophen) 500 Mg Tablet, 1,000 MG PO Q6H PRN for PAIN, (Reported) Allergies Coded Allergies: No Known Allergies (Verified Allergy, Unknown, 01/03/19) JACQUES FRIEDMAN MD Jan 24, 2019 06:33
== END 2019-01-21 15:14 | disposition home or self-care (01) | DRG 421 ==
LOC: M ED 11:58 → M ED INP 17:14 → M MSPAV 19:06
PROVIDERS: ADMIT Student in an Organized Health Care Education/Training Program; ATTEND Hospitalist
PROC: 30233N1 Transfusion of Nonautologous Red Blood Cells into Peripheral Vein, Percutaneous Approach (ICD-10-PCS; principal; 2019-01-03)
DX: E43 Unspecified severe protein-calorie malnutrition (principal); R64 Cachexia; Z93.0 Tracheostomy status; C78.00 Secondary malignant neoplasm of unspecified lung; C79.70 Secondary malignant neoplasm of unspecified adrenal gland; C32.9 Malignant neoplasm of larynx, unspecified; J44.9 Chronic obstructive pulmonary disease, unspecified; D63.8 Anemia in other chronic diseases classified elsewhere; E83.42 Hypomagnesemia; F17.200 Nicotine dependence, unspecified, uncomplicated; Z66 Do not resuscitate

== ENCOUNTER → 2019-02-15 | Outpatient (CLI) | payer OTHER ==
[~2019-02-15] MED LIST changes: +ACET-683 PO; +CEFU1TAB22; +ENSULIQ9 PO; +IPRA0.00; +MUCI120T PO; +SENN-53 PO; -SENN1TAB40 PO
--- NOTE | 2019-02-16 14:41 | REP ---
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 The patient was found to have supraglottic, glottic, and subglottic invasive squamous cell carcinoma for which he underwent bilateral neck dissection and radiation therapy. Review of the patient's chart shows that it was unknown whether or not the patient also received supportive chemotherapy at the time those procedures were being performed. That chart note is dated 01/04/2019. The patient is also status post tracheostomy. Latest prior CT examination of the neck, chest, abdomen, and pelvis reviewed. There are no other more recent priors for comparison and there are no prior PET CTs to review. There is no indication in any of the patient's submitted paperwork that he has received a previous PET/CT examination or more recent CTs. After the intravenous administration of 9.13 millicuries of FDG18, triplane and whole body PET/CT was performed from the skull base to the mid thigh. There is a focus of non-hypermetabolic activity in the postoperative supraglottic neck. This is midline. The SUV values are well than 2.5. There is hypermetabolic adenopathy seen in the aorticopulmonary window with SUV valves approaching 3.0. There is a single focus of increased activity in the right paratracheal region but with SUV valves less than 2.5. There is hypermetabolic activity seen in the subcarinal lymph nodes with SUV valves of 2.5. There is hypermetabolic activity seen in the right lung apical posterior segment, which is rather extensive and having SUV values greater than 5. This areas was seen on the latest prior CT of 07/07/2018, however, today's CT component of the PET/CT shows the area to have increased rather significantly. Additional hypermetabolic activity is seen along the right lung posterior pleural reflection medially from that hypermetabolic mass inferiorly to the mid chest region. These SUV values range from 3.0 to 4.7. There is a focus of hypermetabolic activity seen in the left lung lower lobe and against the medial pleura and having SUV valves of 3.5. These areas were also seen on the prior chest CT have increased rather significantly. There are no other areas of abnormal hypermetabolic activity seen on the noncontrast abdomen or pelvis. IMPRESSION: 1. Multiple foci of abnormal hypermetabolic activity is seen in the chest, as described, likely representing metastatic disease, however, infectious etiology would need to be clinically evaluated for. 2. Hypermetabolic lymphadenopathy as described above. 3. Other findings as described above. Electronically Signed by Andrez Ramesh DO 02/16/2019 03:43 P
== END ==
LOC: M PLARAD 10:39
PROVIDERS: ATTEND Internal Medicine Hematology & Oncology
DX: C32.0 Malignant neoplasm of glottis (principal); Z93.0 Tracheostomy status; R59.1 Generalized enlarged lymph nodes
CPT/HCPCS: 78815; A9552

== ENCOUNTER → 2019-03-11 | Outpatient (CLI) | payer OTHER ==
[~2019-03-11] MED LIST changes: -ENSULIQ9 PO; -MUCI120T PO; -SENN-53 PO; +SENN1TAB40 PO
[2019-03-11 14:14] LABS: INR 1.01
[2019-03-11 14:15] LABS: PARTIAL THROMBOPLASTIN TIME 36.9 SECONDS (25.0-38.4)
== END ==
LOC: M SMT 10:50
PROVIDERS: ATTEND Internal Medicine Pulmonary Disease
DX: R91.8 Other nonspecific abnormal finding of lung field (principal)

== ENCOUNTER → 2019-03-18 | Outpatient (CLI) | payer OTHER ==
[~2019-03-18] MED LIST changes: +LIDOCAINE 1% MDV 20ML VIAL As Ordered ONE
--- NOTE | 2019-03-18 11:35 | REP ---
CT GUIDED NEEDLE BIOPSY PROCEDURE LEFT LOWER LOBE: Needle biopsy procedure aborted due to current chest CT findings. NONCONTRAST CHEST CT: HISTORY: Restaging PET/CT for head and neck malignancy dated February 15, 2019 showed bilateral hypermetabolic foci in the chest. The patient was referred for CT-guided needle biopsy of the left lower lobe focus. The patient was interviewed and informed consent was obtained by Angelina Jimenez. The patient was placed in a right side down decubitus position on the CT table in preparation for CT guided needle biopsy. Preliminary CT images were obtained. The CT-guided needle biopsy procedure was deferred due to substantial improvement and changes in the pulmonary parenchymal findings suggesting inflammatory disease. A routine noncontrast chest CT study was conducted. CT FINDINGS: The anticipated target in the left lower lobe is seen to have improved considerably with only a 6 mm residual nodular density. At the time of PET/CT, this opacity measured 20 mm. This was considerably improved compared to July 07, 2018, which showed a moderate area of consolidation with air bronchograms consistent with pneumonia in this portion of the left lower lobe. Today's chest CT images demonstrate consolidation elsewhere in the left lower lobe which is new compared to the July 07, 2018 prior study and compatible with pneumonia. The pleural based opacity which was also avid on PET in the right lower lobe persists. This has a elongate cranial to caudal dimension of at least 10 cm and is also felt to most likely be inflammatory. Chronic volume loss with cavitary change and adjacent consolidation is again noted in the right apex. There is more consolidation posteriorly adjacent to the cavity in the right apex than was present on July 07, 2018. These changes are similar to the February 15, 2019 PET/CT. In this patient with tracheostomy tube, pulmonary parenchymal opacities are most compatible with recurrent areas of pneumonia and inflammatory disease. Accordingly, we deferred the CT-guided needle biopsy. Other findings include a tiny amount of left pleural fluid, stable, partially calcified mediastinal lymph nodes, and a right-sided [id number] catheter. There are granulomatous calcifications in the spleen as well. Some vascular calcification is noted. IMPRESSION: Changing multifocal areas of bilateral parenchymal consolidation consistent with pneumonia in this patient with tracheostomy tube. The anticipated target of the today's needle biopsy has regressed and the biopsy was deferred. Electronically Signed by Kyle Barahona MD 03/18/2019 03:42 P
== END ==
LOC: M IRPRO 08:13
DX: R91.8 Other nonspecific abnormal finding of lung field (principal)

== ENCOUNTER 2019-04-05 18:58 | Emergency (ER) | payer OTHER ==
[~2019-04-05] VITALS: Ht 180.3 cm; Wt 45.0 kg
[~2019-04-05 18:58] MED LIST changes: -LIDOCAINE 1% MDV 20ML VIAL As Ordered ONE
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
--- NOTE | 2019-04-05 21:38 | REP ---
CHEST, TWO VIEWS: Two views of the chest are performed and compared to prior studies, most recently 01/03/2019. There is chronic pleural and parenchymal opacity in both lung apices. These findings are stable. No definite acute infiltrate is seen bilaterally. The heart is not enlarged. Mediastinal silhouette is unchanged. Tracheostomy tube is again noted. Right central venous catheter is seen with the tip in the right atrium. IMPRESSION: Stable chronic biapical pleural and parenchymal opacities with no new infiltrates. Electronically Signed by Lauri Kline MD 04/06/2019 02:38 P
[2019-04-05] MEDS ORDERED: ISOVUE-370 76% 100ML VIAL (Q9967) As Ordered ONE (22:42)
--- NOTE | 2019-04-05 23:07 | REPVR ---
EXAM: CT Neck With Contrast EXAM DATE/TIME: 04/05/2019 10:22 PM CLINICAL HISTORY: 63 years old, male; Mass, lump, or swelling in neck; Additional info: Obstructive mass TECHNIQUE: Imaging protocol: Axial computed tomography images of the neck with intravenous contrast. Radiation optimization: All CT scans at this facility use at least one of these dose optimization techniques: automated exposure control; mA and/or kV adjustment per patient size (includes targeted exams where dose is matched to clinical indication); or iterative reconstruction. Contrast material: ISO; Contrast volume: 75 ml; Contrast route: AC; COMPARISON: CT Neck with contrast 07/07/2018 6:16 PM FINDINGS: Sinuses: Retention cyst left maxillary sinus. Nasopharynx: Normal. Oropharynx: Normal. No significant tonsillar enlargement. Hypopharynx: See Soft Tissues Finding. Larynx: See Soft Tissues Finding. Retropharyngeal space: Normal. Submandibular/Parotid glands: Normal. Glands are normal in size. Thyroid: See Soft Tissues Finding. Lymph nodes: Normal. No lymphadenopathy. Trachea: Status post tracheostomy insertion. Normal patency of the trachea at the level of the tracheostomy and below. Lungs: Moderate to severe bilateral centrilobular emphysematous changes in upper lobe parenchymal scarring with bronchiectasis. Vasculature: Bilateral atherosclerotic changes in the proximal internal carotid arteries. Bones/joints: Degenerative spondylosis cervical spine. Soft tissues: Heterogeneous soft tissue density opacifies the laryngeal soft tissues extending from the hyoid bone inferiorly to the level of the tracheostomy tube, findings worrisome for infiltrating necrotic neoplasm. Right thyroid cartilage not visualized suggesting destruction. Anterior displacement of the arytenoid cartilages on the right possibly related to the mass. Complete effacement of the left piriform sinus and near complete effacement on the right. IMPRESSION: 1. Heterogeneous soft tissue density opacifies the laryngeal soft tissues extending from the hyoid bone inferiorly to the level of the tracheostomy tube, findings worrisome for infiltrating necrotic neoplasm. Right thyroid cartilage not visualized suggesting destruction. Anterior displacement of the arytenoid cartilages on the right possibly related to the mass. Complete effacement of the left piriform sinus and near complete effacement on the right. 2. Moderate to severe bilateral centrilobular emphysematous changes in upper lobe parenchymal scarring with bronchiectasis. Electronically signed by: Main Renteria On 04/05/2019 23:07:31 PM
[2019-04-06 00:15] VITALS: BP 122/65
== END 2019-04-06 00:16 | disposition home or self-care (01) ==
LOC: EDBD 18:58 → M ED 18:58
DX: S12.101A Unspecified nondisplaced fracture of second cervical vertebra, initial encounter for closed fracture (principal); S12.201A Unspecified nondisplaced fracture of third cervical vertebra, initial encounter for closed fracture; S12.301A Unspecified nondisplaced fracture of fourth cervical vertebra, initial encounter for closed fracture; V43.62XA Car passenger injured in collision with other type car in traffic accident, initial encounter; Y92.410 Unspecified street and highway as the place of occurrence of the external cause; C32.9 Malignant neoplasm of larynx, unspecified; Z93.0 Tracheostomy status; J44.9 Chronic obstructive pulmonary disease, unspecified
CPT/HCPCS: 70450; 70491; 71046; 72125; 99284; Q9967

== ENCOUNTER → 2019-04-25 | Outpatient (CLI) | payer MEDICARE, OTHER ==
[~2019-04-25] MED LIST changes: +ENSULIQ9 PO; +ISOVUE-300 61% 50ML VIAL (Q9967) As Ordered ONE; +LIDOCAINE 1% MDV 20ML VIAL As Ordered ONE; +SENN-53 PO; -SENN1TAB40 PO
[2019-04-25 14:21] VITALS: BP 160/92
--- NOTE | 2019-04-25 16:24 | REP ---
IR port evaluation. Indication: Non healing port. Malfunction. Port placed 2 years ago. The patient states port is working well. Technique: The port was accessed under sterile conditions. The port aspirates well A venogram was performed through the port and this demonstrates good flow from the tip of the port. No fibrin sheath. The port site was accessed and is nontender, there is no swelling, or discharge. Note skin changes over the port site but no signs of infection. Impression: Right chest wall port has been in for 2 years and working well. No current findings indicate malfunction. Circulate access site to enable healing of the skin and prevent chronic sinus formation. However there is no signs of infection or issues and no further intervention is required at present. Thank you this referral. Electronically Signed by Carla Danielson MD 04/25/2019 04:22 P
== END ==
LOC: M IRPRO 12:26
PROVIDERS: ATTEND Radiology Diagnostic Radiology
DX: T82.898A Other specified complication of vascular prosthetic devices, implants and grafts, initial encounter (principal); R23.8 Other skin changes
CPT/HCPCS: 36598; Q9967

== ENCOUNTER → 2019-05-03 | Outpatient (CLI) | payer MEDICARE, OTHER ==
[~2019-05-03] MED LIST changes: -ENSULIQ9 PO; -ISOVUE-300 61% 50ML VIAL (Q9967) As Ordered ONE; +ISOVUE-370 76% 100ML VIAL (Q9967) As Ordered ONE; -LIDOCAINE 1% MDV 20ML VIAL As Ordered ONE; -SENN-53 PO; +SENN1TAB40 PO
--- NOTE | 2019-05-03 15:41 | REPVR ---
EXAM: CT Neck With Contrast EXAM DATE/TIME: 05/03/2019 2:15 PM CLINICAL HISTORY: 64 years old, male; Condition or disease; Cancer; Other: Squamous; Prior surgery; Surgery date: 6+ months; Surgery type: Tracheostomy; Additional info: Squamous cell CA head/neck TECHNIQUE: Imaging protocol: Computed tomography images of the neck with intravenous contrast. Radiation optimization: All CT scans at this facility use at least one of these dose optimization techniques: automated exposure control; mA and/or kV adjustment per patient size (includes targeted exams where dose is matched to clinical indication); or iterative reconstruction. Contrast material: ISOVUE 370; Contrast volume: 75 ml; Contrast route: IV; COMPARISON: CT Neck with contrast 04/05/2019 10:49 PM FINDINGS: Sinuses: There is redemonstration of a 2 x 2.5 cm mucous retention cyst at the floor of the left maxillary sinus. Nasopharynx: Unremarkable. Oropharynx: Unremarkable. No significant tonsillar enlargement. Hypopharynx: Unremarkable Larynx: Unremarkable. Normal epiglottis. Retropharyngeal space: Unremarkable. Submandibular/Parotid glands: There are symmetric contracted hyperintense submandibular glands most likely reflecting post radiation changes. Thyroid: The thyroid gland is normal. Asymmetric right neck mass with destructive changes of the right thyroid and cricoid cartilages with no residual airway through the laryngeal and hypopharyngeal regions are above the tracheostomy. Lymph nodes: Unremarkable. No lymphadenopathy. Trachea: A tracheostomy tube overlies the tracheal air column. Lungs: There is redemonstration of cavitary changes in the right apex posteriorly and significant scarring at the left apex posteriorly. Vasculature: The vasculature demonstrates diffuse moderate atherosclerotic calcification. There is moderate calcification of the carotid siphons. There is mild calcification of the right internal carotid origin with less than 50% compromise of the lumen. There is mild calcification of the left internal carotid origin with less than 50% compromise of the lumen. Dental: The patient is edentulous. Bones/joints: Unremarkable. No acute fracture. Soft tissues: Unremarkable. No significant soft tissue swelling. IMPRESSION: 1. There is redemonstration of cavitary changes in the right apex posteriorly and significant scarring at the left apex posteriorly. 2. Asymmetric right neck mass with destructive changes of the right thyroid and cricoid cartilages with no residual airway through the laryngeal and hypopharyngeal regions are above the tracheostomy. 3. There are symmetric contracted hyperintense submandibular glands most likely reflecting post radiation changes. 4. There is mild calcification of the right internal carotid origin with less than 50% compromise of the lumen. 5. There is mild calcification of the left internal carotid origin with less than 50% compromise of the lumen. COMMENT: In patients aged 35 years and older with an incidental thyroid nodule equal to or greater than 1.[address], MRI or extrathyroidal US, further evaluation with dedicated thyroid US is recommended for patients with normal life expectancy and without comorbidities. For smaller nodules without suspicious features, no further evaluation or follow up is recommended. Electronically signed by: Adrian Shah On 05/03/2019 15:41:23 PM
--- NOTE | 2019-05-04 05:39 | REP ---
Clinical: Head and neck carcinoma. Technique: Axial contrast enhanced images from the thoracic inlet to the upper abdomen with coronal and sagittal re-formations using 100 ml Isovue 370 intravenous contrast material. Comparison: 07/07/2018. Findings: Extensive biapical, perihilar and lower lobe areas of scarring are again appreciated. There is increased elements of soft tissue density along the posterior aspect of the right apex in relation to the area of chronic scarring as well as increased soft tissue density in the left lower lobe in relation to the chronic scarring and fibroatelectatic changes. Smaller areas of nodular opacity along the posterior aspect of the right lower lobe measure approximately 9.3 mm (image 60), and 17 mm (image 90) which are nonspecific in appearance. Partially calcified mediastinal lymph nodes are essentially unchanged from prior examination and without evidence for increased adenopathy. No effusion. No pneumothorax. Thoracic aorta without aneurysm or dissection. No cardiomegaly or pericardial effusion identified. [id number] identified with tip in the right atrium. Osseous structures are intact without focal abnormality. Evidence for tracheostomy. Limited upper abdomen demonstrates normal bilateral adrenal glands along with mild age-related renal atrophy. Impression: Extensive areas of scarring primarily involving the bilateral apices and left base with focal areas of increased soft tissue density in relation to the scarring as well as small nodular opacities in the posterior right lower lobe. Findings are nonspecific and likely represent areas of transient atelectasis/consolidation although malignancy/metastatic disease cannot be excluded. Electronically Signed by Henrique Kaur MD 05/04/2019 05:30 A
== END ==
LOC: M RAD 13:37
PROVIDERS: ATTEND Nurse Practitioner Family
DX: C76.0 Malignant neoplasm of head, face and neck (principal)
CPT/HCPCS: 70491; 71260; Q9967

== ENCOUNTER → 2019-06-07 | Outpatient (CLI) | payer MEDICARE, OTHER ==
[~2019-06-07] MED LIST changes: -ISOVUE-370 76% 100ML VIAL (Q9967) As Ordered ONE; +SENN-53 PO; -SENN1TAB40 PO
--- NOTE | 2019-06-08 16:05 | REP ---
Followup head and carcinoma. COMPARISON: 02/15/2019. After the intravenous administration of 8.75 of FDG 18 triplane whole body PET/CT was performed from the skull base to the mid thigh. There hypermetabolic activity seen in the neck diffusely and in the subglottic region with SUV values just hypermetabolic at 2.75. There is a tracheostomy tube in place. This diffuse slightly increased FDG accumulation has no focality. In the anterior mediastinum there is a focus of hypermetabolic activity with SUV values of 6.51. There is extensive scattered hypermetabolic activity seen in the right lung upper lobe with SUV values of as high as 5.0. When this region is compared to the prior CT/PET of 02/15/2019 it has improved in size and hypermetabolic activity. There is hypermetabolic mediastinal adenopathy. SUV values of these lymph nodes are as high as 4.09 particularly in the aortopulmonary window. All of this represents a change from the prior exam. There is hypermetabolic activity seen in the left lung lower lobe with SUV values as high as 2.66. Pleural based hypermetabolic activity seen in the region of the right lower lobe superior segment paraspinal in location with SUV values as high as 2.88. In the thoracic spine at the level of T9 there is hypermetabolic activity with an SUV value of 2.7. The superior endplate of that vertebral body is compressed. No other areas of abnormal hypermetabolic activity are seen in the neck, chest, abdomen, or pelvis. IMPRESSION: Areas of abnormal hypermetabolic activity as described above consistent with metastatic disease and adenopathy. The hypermetabolic activity seen in the spine, as described above is likely secondary to a recent compression fracture. This needs to be correlated clinically. MRI examination of the spine is recommended for further evaluation. Other findings as described above. Electronically Signed by Andrez Ramesh DO 06/08/2019 04:31 P
== END ==
LOC: M PLARAD 10:13
PROVIDERS: ATTEND Internal Medicine Hematology & Oncology
DX: C44.42 Squamous cell carcinoma of skin of scalp and neck (principal); C32.9 Malignant neoplasm of larynx, unspecified; Z93.0 Tracheostomy status
CPT/HCPCS: 78815; A9552

== ENCOUNTER → 2019-08-18 | Outpatient (CLI) | payer MEDICARE, MEDICAID ==
[~2019-08-18] MED LIST changes: +ENSULIQ9 PO; +ISOVUE-370 76% 100ML VIAL (Q9967) As Ordered ONE
--- NOTE | 2019-08-18 11:41 | REP ---
CT neck: 08/18/2019. Indication: Head and neck carcinoma. Comparison: 05/03/2019. Technique: Axial CT images of the neck soft tissues were obtained following IV administration of 100 ml Isovue 370 with coronal and sagittal reconstructions provided. Findings: The predominantly left-sided parapharyngeal mucosal space mass is redemonstrated and essentially stable with closure of the airway superior to the tracheostomy. Erosive changes of the cricoid and thyroid cartilages are again noted. Significant stranding within the soft tissue and loss of tissue planes are present most likely related to radiation therapy. Small hypodense thyroid nodules are again noted. The carotid arteries are patent. The visualized lungs are unchanged. Please see dedicated chest CT for additional details. No new solid soft tissue masses are present. There has been no progressive cervical lymphadenopathy. Impression: Essentially stable examination compared to 3-1/2 months earlier. Electronically Signed by Perico Aggarwal DO 08/18/2019 11:32 A
--- NOTE | 2019-08-18 13:43 | REP ---
Clinical: History of laryngeal carcinoma. Restaging. Technique: Axial contrast enhanced images from the thoracic inlet to the upper abdomen with coronal and sagittal re-formations using 100 ml Isovue 370 intravenous contrast material. Findings: Biapical scarring is again appreciated including somewhat cavitary appearance in the right apex with ill-defined areas of opacity/consolidation extending to the posterior subpleural right upper lobe. These findings appear relatively stable as compared to prior examination. Remainder of lung morales are relatively clear and demonstrate chronic interstitial changes and minimal scattered scarring. The areas of opacity in the bilateral lower lobes (left greater than right) on prior examination have resolved. No new consolidation, nodule or obvious mass lesion is appreciated. No pleural effusion. No pneumothorax. Tracheobronchial tree is patent with tracheostomy noted. Mediastinum demonstrates subcentimeter nonspecific lymph nodes. Atherosclerotic changes to the thoracic aorta and coronary arteries noted without aortic aneurysm or cardiomegaly. No pericardial effusion. Musculoskeletal structures remain stable and subtle nonacute compression deformity involving the superior endplate at T9 and T6 are suggested. Impression: 1. Lung morales demonstrate stable biapical scarring (right greater than left), and the previously noted by bibasilar opacities have resolved. 2. No adenopathy, acute pleuroparenchymal process, or evidence for metastatic disease noted. 3. Mild nonacute compression deformities involving T9 and T6 suggested. Electronically Signed by Henrique Kaur MD 08/18/2019 01:34 P
== END ==
LOC: M RAD 10:27
PROVIDERS: ATTEND Internal Medicine Hematology & Oncology
DX: C32.9 Malignant neoplasm of larynx, unspecified (principal); R91.8 Other nonspecific abnormal finding of lung field
CPT/HCPCS: 70491; 71260; Q9967

== ENCOUNTER → 2019-10-27 | Outpatient (CLI) | payer MEDICARE, MEDICAID ==
[~2019-10-27] MED LIST changes: +B-12100021 PO; +FERR325T3 PO; -ISOVUE-370 76% 100ML VIAL (Q9967) As Ordered ONE; +MUCI120T PO; +PROHANCE 279.3MG/ML 5ML VIAL (A9576) As Ordered ONE
--- NOTE | 2019-10-27 13:22 | REPVR ---
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 Contrast material: Prohance; Contrast volume: 9 ml; Contrast route: IV; COMPARISON: No relevant prior studies available. FINDINGS: Vertebrae: Moderate chronic T1, T3, T8, mild chronic T2 and T12 vertebral body compression deformities. 15 mm T8 vertebral body hemangioma. Superior T12 vertebral body small recent endplate herniation, with mild cancellous bone edema and enhancement. Loss of fat saturation adding cranial to T2 limits postcontrast vertebral enhancement. Spinal cord: Normal signal. No cord compression. T1-T2: No significant disc disease. No significant spinal canal stenosis. T2-T3: No significant disc disease. No significant spinal canal stenosis. T3-T4: No significant disc disease. No significant spinal canal stenosis. T4-T5: No significant disc disease. No significant spinal canal stenosis. T5-T6: No significant disc disease. No significant spinal canal stenosis. T6-T7: No significant disc disease. No significant spinal canal stenosis. T7-T8: No significant disc disease. No significant spinal canal stenosis. T8-T9: Mild posterior annular bulging. T9-T10: No significant disc disease. No significant spinal canal stenosis. T10-T11: No significant disc disease. No significant spinal canal stenosis. T11-T12: Moderate posterior annular bulging. Soft tissues: Unremarkable. Other findings: Mild right posterior medial nonenhancing pleural thickening possibly representing pleural fibrosis. IMPRESSION: Multiple chronic vertebral body compression deformities. No destructive bony process identified. Recent superior T12 vertebral body benign endplate herniation. Comparison with prior PET/CT study recommended, when available. Electronically signed by: David Newton On 10/27/2019 13:22:33 PM
== END ==
LOC: M RAD 09:10
PROVIDERS: ATTEND Internal Medicine Hematology & Oncology
DX: C32.9 Malignant neoplasm of larynx, unspecified (principal)
CPT/HCPCS: 72157; A9576

== ENCOUNTER → 2019-11-07 | Outpatient (CLI) | payer MEDICARE, MEDICAID ==
[~2019-11-07] MED LIST changes: -PROHANCE 279.3MG/ML 5ML VIAL (A9576) As Ordered ONE
--- NOTE | 2019-11-08 09:26 | REP ---
PET/CT: HISTORY: Restaging laryngeal carcinoma. COMPARISONS: Comparison CT study chest and soft tissue neck from August 18, 2019. Comparison PET/CT June 07, 2019, and February 15, 2019 . TECHNIQUE: 55 minutes following the intravenous injection of a 8.57 mCi dose of F-18 FDG, three-dimensional PET scintigraphy is acquired from the skull base to the proximal thighs. Triplanar noncontrast CT scanning is acquired through the same anatomic range for attenuation correction, and image registration with scan parameters optimized to minimize radiation exposure to the patient. PET scintigraphy and CT datasets were fused and displayed on a workstation with multiplanar and projection display capability. PET/CT FINDINGS: There is a new focus of hypermetabolic uptake in the left supraclavicular region with a small 1.5 cm soft tissue density just lateral to the sternocleidomastoid muscle. Maximum standard uptake value here is 4.21. Mildly hypermetabolic uptake is again seen in the pulmonary parenchymal opacity in the right lung apex. Maximum standard uptake value here is 3.86. There is mildly hypermetabolic misa uptake in the superior mediastinum and a 1 cm lymph node, maximum SUV 3.65. There is a precarinal lymph node showing maximum SUV value 2.90 which is minimally increased. Subcarinal misa focus maximum standard uptake value 2.70. There is a focus of uptake in the rectosigmoid colon to the left of midline in the presacral region which is slightly higher than background gastrointestinal mucosal uptake, maximum SUV 7.97. I cannot exclude a rectosigmoid lesion. No other abnormal hypermetabolic uptake is seen. IMPRESSION: There is one new hypermetabolic focus in the left supraclavicular region. Otherwise findings are quite similar to the most recent prior study. The previously noted pleural based hypermetabolic focus posteriorly in the right chest is not hypermetabolic today. Electronically Signed by Kyle Barahona MD 11/08/2019 10:23 A
== END ==
LOC: M PLARAD 08:35
PROVIDERS: ATTEND Internal Medicine Hematology & Oncology
DX: C32.8 Malignant neoplasm of overlapping sites of larynx (principal)
CPT/HCPCS: 78815; A9552

== ENCOUNTER → 2019-12-12 | Outpatient (CLI) | payer MEDICARE, MEDICAID ==
[2019-12-12 11:54] LABS: FREE T4 1.18 NG/DL (0.76-1.46); THYROID PEROXIDASE ANTIBODY < 28.0 U/ML (<60.0)
== END ==
LOC: M LAB 10:49
PROVIDERS: ATTEND Internal Medicine Endocrinology, Diabetes & Metabolism
DX: R94.6 Abnormal results of thyroid function studies (principal)

== ENCOUNTER → 2019-12-13 | Outpatient (POV) | payer MEDICARE, MEDICAID ==
--- NOTE | 2019-12-14 14:47 | IRCOV ---
[facility] IR Consult Office Visit IR Consult Office Visit DATE: Dec 13, 2019 Teleconsult REASON FOR CONSULTATION/CHIEF COMPLAINT: Port exposed HISTORY OF PRESENT ILLNESS: Patient with laryngeal cancer states he had port placed 2 years ago. Last six months he states the top of it is opening up. Denies pus, pain, fevers or chills. Still on chemotherapy and access necessary. ALLERGIES: Please see below. HOME MEDICATIONS: Please see below. PAST MEDICAL HISTORY: COPD, hypertension, sleep apnea, Vitamin B12 deficiency, iron deficiency PAST SURGICAL HISTORY: L. wrist surgery Trach s/p PEG but had fallen out FAMILY HISTORY: none contributory REVIEW OF SYSTEMS: Otherwise negative PHYSICAL EXAMINATION: Video conference: On visual inspection: the port is exposed. There is a 5 mm opening over the port with rolled and non erythematous edges. No redness or discharge. LABORATORY DATA: 12/01/19 wbc 7.2 Hgb 12.6 HCT 37.6 PLT 310 11/17/19 Na 136 K 4.1 BUN 15 Creatinine 0.69 GFR > 60 Imaging: I personally reviewed the october [address] Right sided port in place. The patient is extremely cachectic and there is very little subcutaneous tissue on the chest wall and insufficient thickness to hold a port. ASSESSMENT/PLAN: 64 male with laryngeal cancer presents with exposed port which was placed 2 years ago but gradually exposed over past few months. The port needs to be removed. I will refer the patient for PICC line placement by tasha, Once patient has a functioning picc in place I will remove the port. Given the patient's chest wall wasting, I don't think another port is a good idea at this time. Arm picc and/or neck morgan are better options. I spent 30 minutes in consultation with the patient. Thank you for this referral. cc Dr. Angel. med onc Allergies Coded Allergies: No Known Allergies (Verified Allergy, Unknown, 01/03/19) Home Medications Scheduled Cyanocobalamin (Vitamin B-12) (B-12), 1 TAB PO DAILY, (Reported) Ferrous Sulfate (Ferrous Sulfate), 1 TAB PO DAILY, (Reported) Lactose-Reduced Food (Ensure Plus), 1 LIQ PO TID Scheduled PRN Acetaminophen (Acetaminophen), 1,000 MG PO DAILY PRN for PAIN OR FEVER, (Reported) Miscellaneous Medications Guaifenesin/Pseudoephedrne HCl (Mucinex D ER 1,200-120 mg Tab), 1 TAB PO, (Reported) Ipratropium/Albuterol Sulfate (Iprat-Albut 0.5-3(2.5) mg/3 ml), (Reported) LILI LUIS MD Dec 14, 2019 14:47
== END ==
LOC: M TMIRPOV 13:22
PROVIDERS: ATTEND Radiology Diagnostic Radiology
DX: Z45.2 Encounter for adjustment and management of vascular access device (principal); C32.9 Malignant neoplasm of larynx, unspecified

== ENCOUNTER → 2019-12-20 | Outpatient (CLI) | payer MEDICARE ==
[~2019-12-20] MED LIST changes: +LIDOCAINE 1% MDV 20ML VIAL As Ordered ONE
[2019-12-20 11:36] VITALS: BP 138/69
--- NOTE | 2019-12-20 17:43 | REP ---
Procedure: PICC line insertion with Jyothi The procedure was performed under the direct supervision of Dr. Kline. The risks and benefits of the procedure were explained to the patient and informed consent was obtained. The right basilic vein was localized using ultrasound guidance. The skin was prepped and draped in a sterile fashion. 2% lidocaine was used as a local anesthetic. Using ultrasound guidance the basilic vein was cannulated and a 0.018 guidewire was inserted and advanced to the SVC using fluoroscopic guidance. The needle was removed and a 4.5 Turkmen dilator and peel-away sheath was inserted over the guide wire. A 4.5 Turkmen single lumen catheter was cut to length of 44 cm. The dilator was removed and the catheter was inserted over the guide wire with the tip ending in the SVC. The peel-away sheath was removed and the catheter was flushed with heparinized saline as per Hospital protocol. The catheter was affixed to the skin and a sterile dressing was applied. The patient tolerated the procedure well and there were no immediate complications. 0.5 minutes of fluoro time was utilized for this procedure. Electronically Signed by GUICHO Faye 12/20/2019 04:32 P Electronically Signed by Lauri Kline MD 12/20/2019 05:34 P
== END ==
LOC: M IRPRO 09:57
PROVIDERS: ATTEND Radiology Diagnostic Radiology
DX: C32.9 Malignant neoplasm of larynx, unspecified (principal)
CPT/HCPCS: 36573; C1751; J1642; J1644

== ENCOUNTER → 2019-12-23 | Outpatient (CLI) | payer MEDICARE ==
[~2019-12-23] MED LIST changes: +MIDAZOLAM INJ 2MG/2ML VIAL (J2250 PER 1MG) As Ordered ONE; +ceFAZolin 1GM VIAL (J0690 PER 500MG) As Ordered ONE; +diphenhydrAMINE 50MG/ML VIAL (J1200) As Ordered ONE; +fentaNYL 100 MCG/2 ML INJECTION (J3010) As Ordered ONE
[2019-12-23 13:38] VITALS: BP 137/63
--- NOTE | 2019-12-24 08:04 | POST-OPPD ---
Postoperative Procedure Note Date Of Procedure: December 23, 2019 Time Of Procedure: 12:05 PREOPERATIVE DIAGNOSIS: head and neck cancer. port exposed POSTOPERATIVE DIAGNOSIS: same FINDINGS: port exposed. pus in pocket PROCEDURE: port removed. pocket packed with iodinated gauze. return Thursday for packing removal. antibiotics 7 days. SURGEON: lavonne ANESTHESIA: mod sed ESTIMATED BLOOD LOSS: < 5 ml COMPLICATIONS: none POSTOPERATIVE CONDITION: stable LILI LUIS MD December 24, 2019 08:04
--- NOTE | 2019-12-26 12:44 | REP ---
IR port removal. IR moderate sedation. Clinical information: Head and neck cancer. Port exposed. Physician: Dr. Danielson. Procedure: The patient was advised of the benefits, risks and alternatives of the procedure and informed consent was obtained. The time-out was performed with verification of the patient's name, MRN, site of procedure and type of procedure to be performed. The patient was positioned in the supine position on the angiographic table. The site was prepped and draped in the usual sterile fashion. Moderate sedation was performed by the physician including the presence of an independent trained observer who assisted and monitored the patient's level of consciousness and physiologic status. Following the administration of Fentanyl and Versed, the physician spent 30 minutes of continuous face to face time with the patient. A tobacco acreage measurer radiograph reveals PICC line and right sided port. The soft tissues overlying the port pocket were anesthetized with lidocaine. An incision was made over the port using an 15 blade scalpel in the location of the prior incision. The catheter was then freed with blunt dissection and extracted. Pressure was applied to obtain hemostasis. The port was then freed with blunt dissection and subsequently removed. There was erica pus in the pocket. After hemostasis was achieved, the pocket was packed with iodinated gauze. A follow-up radiograph demonstrates complete removal of the port. The patient tolerated the procedure well and was returned to PRU in stable condition. EBL: < 5 ml. Complications: None. Conclusion: 1. Successful explant of a right sided port. 2. Pocket infected; packed with iodinated gauze for healing by secondary intent. Follow up in IR in 5 days and start Keflex for 7 days. Thank you this referral. Electronically Signed by Carla Danielson MD 12/26/2019 12:42 P
== END ==
LOC: M IRPRO 09:20
PROVIDERS: ATTEND Radiology Diagnostic Radiology
DX: T82.598A Other mechanical complication of other cardiac and vascular devices and implants, initial encounter (principal); C32.9 Malignant neoplasm of larynx, unspecified; X58.XXXA Exposure to other specified factors, initial encounter
CPT/HCPCS: 36590; 99152; 99153; J0690; J1200; J1642; J1644; J2250; J3010

== ENCOUNTER → 2019-12-28 | Outpatient (CLI) | payer MEDICARE ==
[~2019-12-28] MED LIST changes: -LIDOCAINE 1% MDV 20ML VIAL As Ordered ONE; -MIDAZOLAM INJ 2MG/2ML VIAL (J2250 PER 1MG) As Ordered ONE; -ceFAZolin 1GM VIAL (J0690 PER 500MG) As Ordered ONE; -diphenhydrAMINE 50MG/ML VIAL (J1200) As Ordered ONE; -fentaNYL 100 MCG/2 ML INJECTION (J3010) As Ordered ONE
[2019-12-28 15:07] VITALS: BP 141/81
== END ==
LOC: M IRPRO 12:48
PROVIDERS: ATTEND Radiology Diagnostic Radiology
DX: Z45.2 Encounter for adjustment and management of vascular access device (principal)

== ENCOUNTER → 2020-01-10 | Outpatient (CLI) | payer MEDICARE ==
[~2020-01-10] MED LIST changes: +ISOVUE-370 76% 100ML VIAL As Ordered ONE
--- NOTE | 2020-01-10 15:01 | REP ---
REASON: History of laryngeal cancer. CONTRAST: 100 mL of Isovue 370. All priors were reviewed, the latest of which is dated 08/18/2019. The mediastinum and pulmonary leslie are unchanged. There is no evidence of a mass or adenopathy. There is a tracheostomy tube status quo. There is no significant change in the appearance of the imaged upper abdomen or imaged osseous structures. Evaluation of the lung morales again shows marked emphysematous changes with biapical pleuroparenchymal scarring, parenchymal bullae, and pleural blebs. 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 No new abnormal nodules, masses, or opacities have developed. IMPRESSION: Stable CT findings as described above. Chronic lung field changes appear stable. Electronically Signed by Andrez Ramesh DO 01/10/2020 04:04 P
--- NOTE | 2020-01-10 15:58 | REP ---
SOFT-TISSUE NECK CT STUDY WITH IV CONTRAST: HISTORY: Restaging metastatic laryngeal carcinoma. Status post bilateral neck dissection, tracheostomy, and radiation therapy. Palliative chemotherapy. COMPARISON: Neck CT study August 18, 2019. July 03, 2019 prior study is also reviewed. November 10, [address] CONTRAST DOSE: 100 mL of intravenous Isovue [address] FINDINGS: Pulmonary medical operations supervisor radiographs demonstrate tracheostomy tube in place. There are cavitary changes with pleural thickening and parenchymal fibrosis in the right lung apex and to a lesser extent, the left lung apex. Findings are unchanged from the August 18, 2019 prior study. Tracheostomy tube appears in good position. Thyroid lobes are normal and symmetric. The right thyroid cartilage appears resected at least partially. The right arytenoid cartilage appears resected. Hyoid bone is intact. Submandibular glands are small. There is no evidence of cervical adenopathy or localized mass lesion. Ununited spinous process fractures are seen at C2 and C3. No bony destructive lesion is seen. IMPRESSION: No visible neck mass or adenopathy. Tracheostomy tube in position as before. There are calcified superior mediastinal lymph nodes unchanged. Postoperative changes noted on the right. Electronically Signed by Kyle Barahona MD 01/10/2020 06:00 P
== END ==
LOC: M RAD 10:47
PROVIDERS: ATTEND Internal Medicine Hematology & Oncology
DX: C32.9 Malignant neoplasm of larynx, unspecified (principal); Z93.0 Tracheostomy status; J43.9 Emphysema, unspecified
CPT/HCPCS: 70491; 71260; Q9967

== ENCOUNTER → 2020-01-24 | Outpatient (CLI) | payer MEDICARE ==
[~2020-01-24] MED LIST changes: +ALBU83IN INH; -ISOVUE-370 76% 100ML VIAL As Ordered ONE
== END ==
LOC: M LABSMTC 11:35
PROVIDERS: ATTEND Anesthesiology
DX: Z03.818 Encounter for observation for suspected exposure to other biological agents ruled out (principal); Z11.59 Encounter for screening for other viral diseases
CPT/HCPCS: C9803; U0003

== ENCOUNTER 2020-01-27 10:57 | Day surgery (SDC) | payer MEDICARE ==
[~2020-01-27] VITALS: Ht 167.6 cm; Wt 44.9 kg
[~2020-01-27 10:57] MED LIST changes: +NS 1,000 ML IV ONE
[2020-01-27] MEDS ORDERED: propofoL 200 MG/20 ML VIAL As Ordered ONE ×3 (12:57→14:06)
[2020-01-27] MEDS ORDERED: LIDOCAINE 2% 100MG/5ML SDV (FOR ANES.) As Ordered ONE (12:57)
--- NOTE | 2020-01-27 13:08 | ROOR ---
Patient Name: Henrique Patten Procedure Date: 01/27/2020 12:47 PM Date of : 1955 Age: 64 Room: [facility] Gender: Male Note Status: Finalized Procedure: Upper GI endoscopy Indications: Iron deficiency anemia Providers: Kristian NELSON MD Referring MD: Addis Rodgers MD, [facility], Admin. Requesting Provider: Medicines: Monitored Anesthesia Care Complications: No immediate complications. Procedure: Pre-Anesthesia Assessment: - The heart rate, respiratory rate, oxygen saturations, blood pressure, adequacy of pulmonary ventilation, and response to care were monitored throughout the procedure. The Endoscope was introduced through the mouth, and advanced to the third part of duodenum. The upper GI endoscopy was accomplished without difficulty. The patient tolerated the procedure well. Findings: The esophagus was normal. The stomach was normal. The examined duodenum was normal. Biopsies for histology were taken with a cold forceps in the second portion of the duodenum and in the third portion of the duodenum for evaluation of celiac disease. Impression: - Normal esophagus. - Normal stomach. - Normal examined duodenum. - Biopsies were taken with a cold forceps for evaluation of celiac disease. Recommendation: - Continue present medications. - Observe patient's clinical course. Kristian Nelson MD Kristian NELSON MD 01/27/2020 1:07:58 PM Electronically signed by Kristian NELSON MD Number of Addenda: 0 Note Initiated On: 01/27/2020 12:47 PM Estimated Blood Loss: Estimated blood loss: none.
[2020-01-27] MEDS ORDERED: PHENYLephrine 500MCG 5ML (100MCG/ML) SYRINGE As Ordered ONE (13:09)
[2020-01-27] MEDS ORDERED: GLUCAGON INJ 1MG VIAL As Ordered ONE (13:35)
--- NOTE | 2020-01-27 14:35 | ROOR ---
Patient Name: Henrique Patten Procedure Date: 01/27/2020 12:48 PM Date of : 1955 Age: 64 Room: [facility] Gender: Male Note Status: Finalized Procedure: Colonoscopy Indications: Iron deficiency anemia Providers: Kristian NELSON MD Referring MD: Addis Rodgers MD Requesting Provider: Medicines: Monitored Anesthesia Care Complications: No immediate complications. Procedure: Pre-Anesthesia Assessment: - The heart rate, respiratory rate, oxygen saturations, blood pressure, adequacy of pulmonary ventilation, and response to care were monitored throughout the procedure. The Colonoscope was introduced through the anus and advanced to the terminal ileum, with identification of the appendiceal orifice and IC valve. The colonoscopy was performed without difficulty. The patient tolerated the procedure well. The quality of the bowel preparation was good. Findings: The perianal and digital rectal examinations were normal. A 25 mm polyp was found in the recto-sigmoid colon. The polyp was pedunculated. An endoloop was maneuvered over the polyp stalk and closed at the mucosal attachment prior to removal in order to prevent bleeding. The polyp was removed with a hot snare. Resection and retrieval were complete. A 10 mm polyp was found in the recto-sigmoid colon. The polyp was semi-sessile. The polyp was removed with a hot snare. Resection and retrieval were complete. Two carpet-like polyps were found in the sigmoid colon. The polyps were 20 mm in size. These polyps were removed with a lift and cut technique using a hot snare. Resection and retrieval were complete. Area was tattooed with an injection of Katherine ink. A 20 mm polyp was found in the hepatic flexure. The polyp was carpet-like. The polyp was removed with a piecemeal technique using a cold snare. Resection and retrieval were complete. A 20 mm polyp was found in the cecum appendiceal orifice. The polyp was carpet-like. The polyp was removed with a piecemeal technique using a cold snare. Resection and retrieval were complete. Impression: - One broadly stalked 25 mm polyp at the recto-sigmoid colon, removed with a hot snare. Resected and retrieved. - One semi-sessile 10 mm polyp at the recto-sigmoid colon, removed with a hot snare. Resected and retrieved. - Two flat carpet like multilobed 20 mm polyps in the sigmoid colon, removed using lift and cut and a hot snare. Resected and retrieved. Tattooed. - One flat carpet like multilobed 20 mm polyp at the hepatic flexure, removed piecemeal using a cold snare. Resected and retrieved. - One flat carpet like multilobed 20 mm polyp in the cecum at the appendiceal orifice, removed piecemeal using a cold snare. Resected and retrieved. Recommendation: - Await pathology results. - If the pathology of the large flat polyps reveals adenomatous tissue, then repeat the colonoscopy for surveillance after piecemeal polypectomy in 6 months. - Telephone endoscopist for pathology results in 2 weeks. - No ibuprofen, naproxen, or other non-steroidal anti-inflammatory drugs for 10 days after polyp removal. Kristian Nelson MD Kristian NELSON MD 01/27/2020 2:34:55 PM Electronically signed by Kristian NELSON MD Number of Addenda: 0 Note Initiated On: 01/27/2020 12:48 PM Estimated Blood Loss: Estimated blood loss: none.
[2020-01-27 15:17] VITALS: BP 158/77
[2020-03-02] MEDS ORDERED: DECA4TAB PO (11:02)
[2020-09-11] MEDS ORDERED: MUCI1TAB16 PO (10:56)
== END 2020-01-27 15:45 | disposition home or self-care (01) ==
LOC: M OPP 10:57
PROVIDERS: ATTEND Internal Medicine Gastroenterology
DX: D12.5 Benign neoplasm of sigmoid colon (principal); D12.0 Benign neoplasm of cecum; D12.3 Benign neoplasm of transverse colon; D12.7 Benign neoplasm of rectosigmoid junction; D50.9 Iron deficiency anemia, unspecified; F17.210 Nicotine dependence, cigarettes, uncomplicated
CPT/HCPCS: 43239; 45381; 45385; 88305; J1610; J2370

== ENCOUNTER → 2020-03-27 | Outpatient (CLI) | payer MEDICARE, MEDICAID ==
[~2020-03-27] MED LIST changes: +DECA4TAB PO; -NS 1,000 ML IV ONE
--- NOTE | 2020-05-07 11:53 | REP ---
WHOLE BODY PET-CT SCAN: COMPARISON: 11/07/19 and 10/08/18. 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 TECHNIQUE: Whole body scanning is performed from the skull base to the upper thighs. FINDINGS: NECK AND SUPRACLAVICULAR AREAS: On 11/07/19, there was a new hypermetabolic focus in the left supraclavicular area. This focus has resolved and is no longer present. There are no other foci in the neck or supraclavicular areas. CHEST: There is uptake in an irregular density in the upper lobe of the right lung, having a linear/multinodular configuration. There is no interval size change. The maximal standard uptake value in this lesion today is 4.0. There is a 1 cm lymph node in the superior mediastinum containing a calcification. There is nonhypermetabolic uptake in this lymph node today. The standard maximal uptake value is 2.2. There is a precarinal lymph node containing a calcification with a maximal standard uptake value today of 2.2, nonhypermetabolic. There is a subcarinal lymph node containing a calcification with a maximal standard uptake value today of 2.8, borderline hypermetabolic. ABDOMEN, PELVIS AND UPPER THIGHS: Previously, there was a presacral hypermetabolic focus in the pelvis. This focus is no longer identified today. There are no other foci in the abdomen, pelvis or upper thighs. IMPRESSION: The previously identified hypermetabolic focus in the left supraclavicular zone is no longer present. The previously identified hypermetabolic focus in the pre-sacral region is no longer present. The uptake in mediastinal nodes is as discussed above. The uptake in the irregular right upper lobe lesion is as discussed above. The study is performed with 8.0 mCi of F18 FTG. MTDD
== END ==
LOC: M PLARAD 08:00
PROVIDERS: ATTEND Internal Medicine Medical Oncology
DX: C32.8 Malignant neoplasm of overlapping sites of larynx (principal); R59.0 Localized enlarged lymph nodes
CPT/HCPCS: 78815; A9552

== ENCOUNTER → 2020-04-16 | Outpatient (CLI) | payer MEDICARE, MEDICAID ==
[2020-04-16 16:02] LABS: FREE T4 0.97 NG/DL (0.76-1.46); THYROID STIMULATING HORMONE 3.92 uIU/ML (0.358-3.740)
== END ==
LOC: M PLALAB 13:08
PROVIDERS: ATTEND Nurse Practitioner Family
DX: R94.6 Abnormal results of thyroid function studies (principal)

== ENCOUNTER → 2020-08-22 | Outpatient (CLI) | payer MEDICAID, MEDICARE ==
[~2020-08-22] MED LIST changes: +ISOVUE-370 76% 100ML VIAL As Ordered ONE
--- NOTE | 2020-08-22 13:44 | REP ---
INDICATION: LARYNX CA. Patient is status post bilateral neck dissection, tracheostomy, radiation therapy, and chemotherapy. COMPARISON: Comparison CT study of the neck January 10, 2020. Comparison PET-CT March 27, 2020.. TECHNIQUE: Helical scanning is acquired following the intravenous injection of 75 mL of Isovue 370. 3 mm axial images re-formatted. Coronal and sagittal MPR images are provided. FINDINGS: Preliminary digital lithographers printer views demonstrate a tracheostomy tube in place. The patient is edentulous. There is a large mucous retention cyst in the left maxillary sinus and a small mucous retention cyst is seen in the right maxillary sinus. Visualized paranasal sinuses are otherwise clear. No intraorbital abnormality is seen. There is some vascular calcification in the distal internal carotid arteries bilaterally. Calcific plaquing is observed in the proximal ICA carotid bifurcation regions bilaterally. Tracheostomy tube is seen in position. Thyroid lobes are normal and symmetric. The portion of the right thyroid cartilage has been resected. The arytenoids are somewhat asymmetric as before post partial laryngectomy. No neck mass or adenopathy is observed. Pleuroparenchymal scarring is seen in the apex of each lung as before. No bony destructive lesion is appreciated. IMPRESSION: Stable postoperative changes partial laryngectomy on the right. No neck mass or adenopathy. A tracheostomy tube remains in place. Mucous retention cysts are seen in each maxillary sinus. <Electronically signed by Mina Barahona > 08/22/20 [id number]
--- NOTE | 2020-08-22 13:49 | REP ---
INDICATION: LARYNX CA COMPARISON: 01/10/2020 TECHNIQUE: Axial contrast enhanced images from the thoracic inlet to the upper abdomen with coronal and sagittal reformations using 75 ml Isovue 370 intravenous contrast material. [address] CT examination was performed using the following dose reduction techniques: Automated exposure control, adjustment of mA and/or kv according to the patient's size, and use of iterative reconstruction technique. FINDINGS: Significant biapical pleuroparenchymal changes primarily noted in the right apex including cavitary lesion along with bronchiectasis and scattered chronic scarring remain essentially unchanged. There is an irregular nodular lesion along the medial aspect of the apical segment right lower lobe measuring roughly 2.6 x 1.7 cm maximal AP and transverse diameter which is increased in size from prior examination and demonstrates obvious enhancement suspicious for presumed metastatic focus given history of laryngeal carcinoma. There are subtle new ill-defined parenchymal opacities noted in the lingula and bilateral lower lobes which are nonspecific and may represent atelectasis or progressive scarring. No pleural effusion. Evaluation of the mediastinum demonstrates tracheostomy in stable satisfactory position along with relatively stable appearance to the thoracic aorta, pulmonary vasculature and heart/pericardium. Few mildly prominent mediastinal lymph nodes measuring up to roughly 11 mm short axis diameter are again noted and nonspecific. IMPRESSION: 1. Enlarging enhancing nodular mass lesion along the medial subpleural apical segment right lower lobe suspicious for metastatic focus. 2. Nonspecific new small areas of ill-defined parenchymal opacities at the lingula and lower lobes may reflect atelectasis or progressive scarring. <Electronically signed by Henrique Kaur > 08/22/20 [id number]
== END ==
LOC: M RAD 13:07
PROVIDERS: ATTEND Internal Medicine Medical Oncology
DX: C32.9 Malignant neoplasm of larynx, unspecified (principal); Z92.3 Personal history of irradiation; Z92.21 Personal history of antineoplastic chemotherapy; Z90.02 Acquired absence of larynx
CPT/HCPCS: 70491; 71260; Q9967

== ENCOUNTER → 2020-09-17 | Outpatient (CLI) | payer MEDICARE ==
[~2020-09-17] MED LIST changes: -ISOVUE-370 76% 100ML VIAL As Ordered ONE; +LIDOCAINE 1% MDV 20ML VIAL As Ordered ONE; +MUCI1TAB16 PO; +SODIUM BICARBONATE 8.4% INJ 50MEQ 50 ML VIAL As Ordered ONE
--- NOTE | 2020-09-17 10:29 | REP ---
INDICATION: POST RIGHT LUNG BIOPSY, 1 VIEW, PA INSPIRATION. COMPARISON: Comparison chest x-ray April 05, 2019.. TECHNIQUE: PA chest radiograph. FINDINGS: Tracheostomy tube remains in place. Right apical pleuroparenchymal fibrosis is seen. Left perihilar linear fibrosis is noted. There is no evidence of pneumothorax or hydrothorax. Heart is not enlarged. IMPRESSION: No complication is identified. <Electronically signed by Mina Barahona > 09/17/20 [id number]
[2020-09-17 12:03] VITALS: BP 153/80
--- NOTE | 2020-09-17 14:15 | REP ---
INDICATION: RLL LOBE LUNG PLEURAL BASED LESION W/ LARYNX CA. COMPARISON: None. TECHNIQUE: The procedure is performed by Angelina Jimenez [facility], under the direct supervision of Dr. Barahona. The risks and benefits of the procedure were explained to the patient and informed consent was obtained both orally and written. Directly prior to the start of the procedure, a formal timeout was done in the exam room. The right lower lobe lung mass was localized using CT guidance. Skin was prepped and draped in the usual sterile fashion. Four ml of buffered lidocaine was used as a local anesthetic. FINDINGS: Using CT guidance a 19/20 gauge coaxial needle biopsy system was inserted and advanced into the nodule. Six core biopsy samples were obtained and sent to the lab. CT images obtained directly after the biopsy show no evidence of pneumothorax. After the appropriate amount of monitored convalescence the patient was discharged from the department. IMPRESSION: CT guided biopsy of right lower lobe lung mass. <Electronically signed by Angelina Jimenez > 09/17/20 [id number] <Electronically signed by Mina Barahona > 09/17/20 [id number]
== END ==
LOC: M IRPRO 08:47
PROVIDERS: ATTEND Internal Medicine Medical Oncology
DX: C32.9 Malignant neoplasm of larynx, unspecified (principal); Z93.0 Tracheostomy status

== ENCOUNTER → 2021-01-18 | Outpatient (CLI) | payer MEDICAID, MEDICARE ==
[~2021-01-18] MED LIST changes: +COVI30VI IM; +ISOVUE-370 76% 100ML VIAL As Ordered ONE; -LIDOCAINE 1% MDV 20ML VIAL As Ordered ONE; -SODIUM BICARBONATE 8.4% INJ 50MEQ 50 ML VIAL As Ordered ONE
--- NOTE | 2021-01-18 09:42 | REPVR ---
PROCEDURE INFORMATION: Exam: CT Neck With Contrast Exam date and time: 01/18/2021 8:53 AM Age: 65 years old Clinical indication: Condition or disease; Cancer; Laryngeal; Additional info: Laryngeal CA TECHNIQUE: Imaging protocol: Computed tomography images of the neck with contrast. Radiation optimization: All CT scans at this facility use at least one of these dose optimization techniques: automated exposure control; mA and/or kV adjustment per patient size (includes targeted exams where dose is matched to clinical indication); or iterative reconstruction. Contrast material: ISOVUE 370; Contrast volume: 100 ml; Contrast route: INTRAVENOUS (IV); COMPARISON: CT Neck with contrast 08/22/2020 1:27 PM FINDINGS: Paranasal sinuses: There are mucous retention cysts within the maxillary sinuses. Nasopharynx: Unremarkable. Oropharynx: Unremarkable. No significant tonsillar enlargement. Hypopharynx: Unremarkable. Larynx: There are postoperative changes reflecting right monalisa laryngectomy. Retropharyngeal space: Unremarkable. Submandibular/Parotid glands: Normal. Glands are normal in size. Thyroid: Normal. No enlarged or calcified nodules. Lymph nodes: There is no worrisome cervical lymphadenopathy. Trachea: Tracheostomy tube is in place. Lungs: There is biapical scarring with bleb is asymmetric to the right. Bones/joints: There are mild T1 and moderate T3 ventral compression deformities, stable.. Vasculature: There are calcific atherosclerotic changes of the proximal internal carotid arteries. Soft tissues: Unremarkable. No significant soft tissue swelling. IMPRESSION: Postoperative change reflecting right monalisa laryngectomy. No new or progressive abnormality. Electronically signed by: Meredith Anders On 01/18/2021 09:41:30 AM
--- NOTE | 2021-01-18 09:58 | REP ---
INDICATION: LARYNGEAL CA COMPARISON: Multiple the latest 08/22/2020 TECHNIQUE: Standard helical technique after the intravenous administration of 100 cc Isovue 370. FINDINGS: There is no significant change in appearance of the mediastinum or pulmonary leslie. Once again, there are multiple borderline and mildly enlarged mediastinal lymph nodes and some of which have calcifications status quo. There is no significant change in appearance of the imaged osseous structures. Once again, there are multiple thoracic spine vertebral body compression fractures which appear stable. There is no significant change in appearance of the imaged upper abdomen. Evaluation of the lung morales shows heavy biapical pleuroparenchymal scarring and again right greater than left with large parenchymal bulla and pleural blebs. The pleural base mass density seen previously in the right posteromedial lower lobe region has not changed significantly. The base of the density has decreased in size, however, the apex of the density has increased in size. No new abnormal nodules or mass densities have developed. There is no significant change in appearance of the tracheostomy tube position. IMPRESSION: Multiple pulmonary abnormalities, as described above, but no evidence of significant change compared to the prior exam. <Electronically signed by Andrez Ramesh > 01/18/21 [id number]
== END ==
LOC: M RAD 08:27
PROVIDERS: ATTEND Internal Medicine Medical Oncology
DX: C32.9 Malignant neoplasm of larynx, unspecified (principal); Z93.0 Tracheostomy status; Z98.890 Other specified postprocedural states; S22.010D Wedge compression fracture of first thoracic vertebra, subsequent encounter for fracture with routine healing; S22.030D Wedge compression fracture of third thoracic vertebra, subsequent encounter for fracture with routine healing; R59.0 Localized enlarged lymph nodes
CPT/HCPCS: 70491; 71260; Q9967

== ENCOUNTER → 2021-02-25 | Outpatient (CLI) | payer MEDICARE ==
[~2021-02-25] MED LIST changes: -ISOVUE-370 76% 100ML VIAL As Ordered ONE
--- NOTE | 2021-02-25 14:42 | DEXAMM ---
INDICATION: COMPRESSION FX,SREENING FOR OSTEOPOROSIS. COMPARISON: None. TECHNIQUE: Bone density was measured using dual-energy x-ray absorptionmetry (DEXA). FINDINGS: AP SPINE L1-L4 BMD 0.776 g/cm2 Young Adult T-Score -3.4 Age Matched Z-Score -3.3. LT FEMUR, TOTAL BMD 0.542 g/cm2 Young Adult T-Score -3.7 Age Matched Z-Score -3.3. LT NECK BMD 0.532 g/cm2 Young Adult T-Score -3.6 Age Matched Z-Score 6-3.1. RT FEMUR, TOTAL BMD 0.508 g/cm2 Young Adult T-Score -4.0 Age Matched Z-Score -3.6. RT NECK BMD 0.540 g/cm2 Young Adult T-Score -3.6 Age Matched Z-Score -3.0. IMPRESSION: There is osteoporosis of the spine. There is osteoporosis of the left hip. There is osteoporosis of the right hip. FOLLOW-UP: Recommendation for the next bone density exam: 2 years. <Electronically signed by Mina Barahona > 02/25/21 [id number]
== END ==
LOC: M WHC 10:55
PROVIDERS: ATTEND Internal Medicine Medical Oncology
DX: M81.0 Age-related osteoporosis without current pathological fracture (principal)

== ENCOUNTER → 2021-05-23 | Outpatient (CLI) | payer MEDICARE ==
[~2021-05-23] MED LIST changes: +MUCU1TAB PO
== END ==
LOC: M LABSMTC 09:16
PROVIDERS: ATTEND Anesthesiology
DX: Z01.812 Encounter for preprocedural laboratory examination (principal); Z20.822 Contact with and (suspected) exposure to COVID-19

== ENCOUNTER 2021-05-28 08:44 | Day surgery (SDC) | payer MEDICARE ==
[~2021-05-28] VITALS: Ht 167.6 cm; Wt 43.7 kg
[~2021-05-28 08:44] MED LIST changes: +NS 1,000 ML IV ONE
[2021-05-28] MEDS ORDERED: propofoL 200 MG/20 ML VIAL As Ordered ONE ×2 (10:03→10:18)
[2021-05-28] MEDS ORDERED: LIDOCAINE 2% 100MG/5ML SDV (FOR ANES.) As Ordered ONE (10:03)
--- NOTE | 2021-05-28 10:41 | ROOR ---
Patient Name: Henrique Patten Procedure Date: 05/28/2021 10:09 AM Date of : 1955 Age: 66 Room: [facility] Gender: Male Note Status: Finalized Procedure: Colonoscopy Indications: Surveillance: Piecemeal removal of large sessile adenoma last colonoscopy (< 3 yrs) Providers: Kristian Nelson MD Referring MD: Marybel Boss Md Requesting Provider: Medicines: Monitored Anesthesia Care Complications: No immediate complications. Procedure: Pre-Anesthesia Assessment: - The heart rate, respiratory rate, oxygen saturations, blood pressure, adequacy of pulmonary ventilation, and response to care were monitored throughout the procedure. The Colonoscope was introduced through the anus and advanced to the cecum, identified by appendiceal orifice and ileocecal valve. The colonoscopy was performed without difficulty. The patient tolerated the procedure well. The quality of the bowel preparation was good. Findings: The perianal and digital rectal examinations were normal. Three sessile polyps were found in the hepatic flexure and ascending colon. The polyps were 4 to 6 mm in size. These polyps were removed with a cold snare. Resection and retrieval were complete. A 5 mm polyp was found in the rectum. The polyp was sessile. The polyp was removed with a cold snare. Resection and retrieval were complete. A tattoo was seen in the proximal sigmoid colon. A post-polypectomy scar was found at the tattoo site. There was no evidence of residual polyp tissue. The exam was otherwise without abnormality on direct and retroflexion views. Impression: - Three 4 to 6 mm polyps at the hepatic flexure and in the ascending colon, removed with a cold snare. Resected and retrieved. - One 5 mm polyp in the rectum, removed with a cold snare. Resected and retrieved. - A tattoo was seen in the proximal sigmoid colon. A post-polypectomy scar was found at the tattoo site. There was no evidence of residual polyp tissue. - The examination was otherwise normal on direct and retroflexion views. Recommendation: - Repeat colonoscopy in 3 years for surveillance. Procedure Code(s): --- Professional --- 79415, Colonoscopy, flexible; with removal of tumor(s), polyp(s), or other lesion(s) by snare technique Diagnosis Code(s): --- Professional --- K62.1, Rectal polyp K63.5, Polyp of colon Z86.010, Personal history of colonic polyps CPT copyright 2019 [employer]. All rights reserved. The codes documented in this report are preliminary and upon hall clerk review may be revised to meet current compliance requirements. Kristian Nelson MD Kristian Nelson MD 05/28/2021 10:41:09 AM Electronically signed by Kristian Nelson MD Number of Addenda: 0 Note Initiated On: 05/28/2021 10:09 AM Estimated Blood Loss: Estimated blood loss: none.
[2021-05-28 10:55] VITALS: BP 142/72
== END 2021-05-28 11:00 | disposition home or self-care (01) ==
LOC: M OPP 08:44
PROVIDERS: ATTEND Internal Medicine Gastroenterology
DX: D12.2 Benign neoplasm of ascending colon (principal); D12.3 Benign neoplasm of transverse colon; D12.8 Benign neoplasm of rectum; Z86.010 Personal history of colon polyps; Z09 Encounter for follow-up examination after completed treatment for conditions other than malignant neoplasm; Z79.899 Other long term (current) drug therapy; Z85.818 Personal history of malignant neoplasm of other sites of lip, oral cavity, and pharynx; Z85.118 Personal history of other malignant neoplasm of bronchus and lung; Z92.21 Personal history of antineoplastic chemotherapy; Z92.3 Personal history of irradiation; F17.210 Nicotine dependence, cigarettes, uncomplicated

== ENCOUNTER → 2021-11-26 | Outpatient (CLI) | payer MEDICARE ==
[~2021-11-26] MED LIST changes: +GASTROGRAFIN SOLUTION 30ML (Q9963) As Ordered ONE; +ISOVUE-370 76% 100ML VIAL As Ordered ONE; -NS 1,000 ML IV ONE; +OMEP40CA5
== END ==
LOC: M RAD 12:58
PROVIDERS: ATTEND Internal Medicine Medical Oncology
DX: C32.9 Malignant neoplasm of larynx, unspecified (principal); K76.89 Other specified diseases of liver; I70.0 Atherosclerosis of aorta; Z90.02 Acquired absence of larynx; J44.9 Chronic obstructive pulmonary disease, unspecified; Z93.0 Tracheostomy status; R91.8 Other nonspecific abnormal finding of lung field
CPT/HCPCS: 70491; 71260; 74177; Q9963; Q9967

== ENCOUNTER 2021-11-28 13:18 | Day surgery (SDC) | payer MEDICARE ==
[~2021-11-28] VITALS: Ht 167.6 cm; Wt 46.3 kg
[~2021-11-28 13:18] MED LIST changes: -GASTROGRAFIN SOLUTION 30ML (Q9963) As Ordered ONE; -ISOVUE-370 76% 100ML VIAL As Ordered ONE; +NS 1,000 ML IV ONE
[2021-11-28] MEDS ORDERED: ALBUTEROL 6.7GM INHALER **FOR ANES. CART/OMNICELL ONLY As Ordered ONE (15:26)
[2021-11-28] MEDS ORDERED: LIDOCAINE 2% 100MG/5ML SDV (FOR ANES.) As Ordered ONE (15:28)
[2021-11-28] MEDS ORDERED: propofoL 200 MG/20 ML VIAL As Ordered ONE (15:28)
[2021-11-28 16:29] VITALS: BP 161/82
== END 2021-11-28 16:28 | disposition home or self-care (01) ==
LOC: M OPP 13:18
PROVIDERS: ATTEND Internal Medicine Gastroenterology
DX: K29.70 Gastritis, unspecified, without bleeding (principal); D50.9 Iron deficiency anemia, unspecified; R93.3 Abnormal findings on diagnostic imaging of other parts of digestive tract; Z86.010 Personal history of colon polyps; Z85.118 Personal history of other malignant neoplasm of bronchus and lung; Z85.818 Personal history of malignant neoplasm of other sites of lip, oral cavity, and pharynx; Z92.3 Personal history of irradiation; Z79.899 Other long term (current) drug therapy; F17.210 Nicotine dependence, cigarettes, uncomplicated

== ENCOUNTER 2022-08-08 10:23 | Emergency (ER) | payer MEDICARE ==
[~2022-08-08] VITALS: Ht 167.6 cm; Wt 44.1 kg
[~2022-08-08 10:23] MED LIST changes: +ALBU2.5V10 INH; -ALBU83IN INH; +BUDE0.5S6; -NS 1,000 ML IV ONE
[2022-08-08 11:31] LABS: BASO # 0.1 10^3/uL (0.0-0.2); BASO % 1.3 % (0.0-1.0); EOS # 0.1 10^3/uL (0.0-0.5); EOS % 0.6 % (0.0-3.0); HEMATOCRIT 43.2 % (42.0-52.0); HEMOGLOBIN 14.6 g/dl (13.5-17.5); LYMPH # 0.5 10^3/uL (1.5-5.0); LYMPH % 5.2 % (24.0-44.0); MEAN CORPUSCULAR HEMOGLOBIN 30.9 pg (27.0-33.0); MEAN CORPUSCULAR HGB CONC 33.8 g/dl (32.0-36.5); MEAN CORPUSCULAR VOLUME 91.5 fl (80.0-96.0); MONO # 0.5 10^3/uL (0.0-0.8); MONO % 5.6 % (2.0-8.0); NEUTROPHILS % 86.7 % (36.0-66.0); PLATELET COUNT, AUTOMATED 550 10^3/uL (150-450); RED BLOOD COUNT 4.72 10^6/uL (4.30-6.10); WHITE BLOOD COUNT 9.2 10^3/uL (4.0-10.0)
[2022-08-08 11:50] LABS: CALCIUM LEVEL 6.3 MG/DL (8.3-10.6); CREATININE FOR GFR 1.54 MG/DL (0.70-1.30); GLOMERULAR FILTRATION RATE 48.4 (>49); POTASSIUM SERUM 4.1 MMOL/L (3.5-5.1)
[2022-08-08] MEDS ORDERED: NS 1,000 ML IV ONE (12:05)
[2022-08-08 15:00] VITALS: BP 159/90
== END 2022-08-08 15:31 | disposition home or self-care (01) ==
LOC: M ED 10:23
DX: E86.0 Dehydration (principal); R05.9 Cough, unspecified; I10 Essential (primary) hypertension; J44.9 Chronic obstructive pulmonary disease, unspecified; G47.33 Obstructive sleep apnea (adult) (pediatric); F17.200 Nicotine dependence, unspecified, uncomplicated; C32.9 Malignant neoplasm of larynx, unspecified; C78.02 Secondary malignant neoplasm of left lung; C79.89 Secondary malignant neoplasm of other specified sites; D50.9 Iron deficiency anemia, unspecified; Z79.899 Other long term (current) drug therapy

== ENCOUNTER → 2023-01-28 | Outpatient (CLI) | payer MEDICARE ==
[~2023-01-28] MED LIST changes: +GASTROGRAFIN SOLUTION 30ML As Ordered ONE; +ISOVUE-370 76% 100ML VIAL As Ordered ONE; +PRED10TA2
== END ==
LOC: M RAD 11:13
PROVIDERS: ATTEND Internal Medicine Medical Oncology
DX: C32.9 Malignant neoplasm of larynx, unspecified (principal)
CPT/HCPCS: 70491; 71260; 74177; Q9963; Q9967

== ENCOUNTER → 2023-04-06 | Outpatient (CLI) | payer MEDICARE ==
[~2023-04-06] MED LIST changes: -GASTROGRAFIN SOLUTION 30ML As Ordered ONE; -ISOVUE-370 76% 100ML VIAL As Ordered ONE
== END ==
LOC: M PLARAD 08:08
PROVIDERS: ATTEND Internal Medicine Medical Oncology
DX: C32.8 Malignant neoplasm of overlapping sites of larynx (principal); R91.8 Other nonspecific abnormal finding of lung field; Z93.0 Tracheostomy status
CPT/HCPCS: 78815; A9552

== ENCOUNTER → 2023-08-07 | Outpatient (CLI) | payer MEDICARE, MEDICAID ==
[~2023-08-07] MED LIST changes: +GASTROGRAFIN SOLUTION 30ML As Ordered ONE; +IPRA0.00 NEB; +ISOVUE-370 76% 100ML VIAL As Ordered ONE; +LEVO25TA5 PO; +LEVO50TA5 PO
== END ==
LOC: M RAD 07:16
PROVIDERS: ATTEND Internal Medicine Medical Oncology
DX: C32.9 Malignant neoplasm of larynx, unspecified (principal)
CPT/HCPCS: 71260; 74177; Q9963; Q9967

== ENCOUNTER → 2023-11-05 | Outpatient (CLI) | payer MEDICARE, MEDICAID | LOC: M RAD 08:20 | PROVIDERS: ATTEND Internal Medicine Medical Oncology | DX: C32.9 Malignant neoplasm of larynx, unspecified (principal); J44.9 Chronic obstructive pulmonary disease, unspecified; R91.8 Other nonspecific abnormal finding of lung field | CPT/HCPCS: 71260; 74177; Q9963; Q9967 ==

== ENCOUNTER → 2024-02-01 | Outpatient (CLI) | payer MEDICARE, MEDICAID ==
[~2024-02-01] MED LIST changes: +BENA25CA4 PO; +LEVO1TAB39 PO; +PRED50TA PO; +SYNT75TA PO; +[UNRECOGNIZED DRUG - CODE] PO
== END ==
LOC: M RAD 08:47
PROVIDERS: ATTEND Internal Medicine Medical Oncology
DX: C32.9 Malignant neoplasm of larynx, unspecified (principal)
CPT/HCPCS: 71260; 74177; Q9963; Q9967

== ENCOUNTER → 2024-06-01 | Outpatient (CLI) | payer MEDICARE, MEDICAID ==
[~2024-06-01] MED LIST changes: -GASTROGRAFIN SOLUTION 30ML As Ordered ONE; +PRED20TA PO
== END ==
LOC: M RAD 09:06
PROVIDERS: ATTEND Internal Medicine Medical Oncology
DX: C32.9 Malignant neoplasm of larynx, unspecified (principal); K76.89 Other specified diseases of liver; I70.0 Atherosclerosis of aorta; Z93.0 Tracheostomy status; J47.9 Bronchiectasis, uncomplicated; J98.11 Atelectasis; J43.9 Emphysema, unspecified; R91.8 Other nonspecific abnormal finding of lung field
CPT/HCPCS: 71260; 74177; Q9967

== ENCOUNTER → 2024-11-30 | Outpatient (CLI) | payer MEDICARE, MEDICAID ==
[~2024-11-30] MED LIST changes: -ADV500INH INH; +ADVA1AER10 INH; +CALC1TAB42 PO; -ISOVUE-370 76% 100ML VIAL As Ordered ONE; +ISOVUE-370 76% 100ML VIAL ONE
== END ==
LOC: M PLAIMG 10:28
DX: C32.9 Malignant neoplasm of larynx, unspecified (principal); Z93.0 Tracheostomy status; J98.11 Atelectasis; R91.8 Other nonspecific abnormal finding of lung field; M40.209 Unspecified kyphosis, site unspecified; K76.89 Other specified diseases of liver
CPT/HCPCS: 71260; 74177; Q9967

== ENCOUNTER → 2025-03-27 | Outpatient (CLI) | payer MEDICARE, MEDICAID ==
[~2025-03-27] MED LIST changes: +ISOVUE-370 76% 100 ML VIAL As Ordered ONE; -ISOVUE-370 76% 100ML VIAL ONE; +LEVO75TA4 PO; -PRED50TA PO; +PRED50TA57 PO
== END ==
LOC: M RAD 08:50
DX: C32.9 Malignant neoplasm of larynx, unspecified (principal)
CPT/HCPCS: 71260; 74177; Q9967

== ENCOUNTER → 2025-05-23 | Outpatient (CLI) | payer MEDICARE, MEDICAID ==
[~2025-05-23] MED LIST changes: +AZIT-12 PO; -ISOVUE-370 76% 100 ML VIAL As Ordered ONE
== END ==
LOC: M PLARAD 07:10
PROVIDERS: ATTEND Internal Medicine Medical Oncology
DX: C32.8 Malignant neoplasm of overlapping sites of larynx (principal)
CPT/HCPCS: 78815; A9552